=== PATIENT | male | born 1965 | race Asian ===

== ENCOUNTER 2020-02-04 13:09 | Emergency (ER) | payer OTHER, SELFPAY ==
--- NOTE | ~2020-02-04 | CT_ITS ---
EXAMINATION: CT abdomen pelvis w con DATE: 02/04/2020 14:19 INDICATION: Right lower quadrant abdominal pain TECHNIQUE: Computed tomography (CT) of the abdomen and pelvis was performed with 100 cc Omnipaque int ravenous contrast. Automated exposure control and iterative reconstruction technique were employed. E xam dose: 813.58 mGy-cm total exam DLP. COMPARISON: 02/08/2018 CT abdomen pelvis. FINDINGS: Normal heart size. Hepatic steatosis. There are occasional hepatic cysts, measuring 6.5 mm maximally. Normal splenic size. No pancreatic mass lesion, calcification or ductal dilatation. Normal morphology of the adrenal glands. 3 mm lower pole probable right renal cyst. There are 3.2 and 2 mm nonobstructing lower pole left renal calculi. No ureteral calculus or hydroureteronephrosis. The urinary bladder is unremarkable. Prostate enlargement and calcifications. The seminal vesicles appear normal. Normal caliber of the abdominal aorta. There is prominent calcification at the origin of the left yumiko al artery. No intraperitoneal or retroperitoneal or pelvic mass lesion or adenopathy or ascites. Small sliding hiatal hernia. Normal appendix. No bowel obstruction or intraperitoneal free air. No suspicious osteolytic or osteoblastic lesions. IMPRESSION: Normal appendix Hepatic steatosis Occasional hepatic cysts 3 mm right renal cyst Small nonobstructing left renal calculi Small sliding hiatal hernia Reviewed, dictated and finalized at [facility]. Reviewed, dictated and finalized at [facility].
[2020-02-04 13:14] VITALS: BP 147/89; PULSE 113; RESP 18; TEMP 36.7; O2SAT 100
--- NOTE | 2020-02-04 13:40 | ED.ABDPAIN ---
HPI - Abdominal Pain General Chief Complaint: Abdominal Pain Stated Complaint: abd pain Time Seen by Provider: 02/04/20 13:40 Source: patient Mode of arrival: ambulatory Limitations: no limitations History of Present Illness HPI narrative: A 54 y/o male presents to the ED with c/o pressure-like RLQ ABD pain that began a few days ago. Pt notes that he was seen at a hospital a few years ago for similar symptoms and had a normal CT scan. Pt last ate at 11:00 AM today. He denies a fever, chills, hematuria, blood in stool, N/V, a fall or recent trauma, and a PSHx of a cholecystectomy and an appendectomy. Onset (ago): day(s) (few) Location: RLQ Related Data Allergies Allergy/AdvReac Type Severity Reaction Status Date / Time Penicillins Allergy Unknown Unknown Verified 11/02/19 14:41 Review of Systems Review of Systems: All systems reviewed & are unremarkable except as noted in HPI and below Constitutional: Constitutional: Denies chills and Denies fever(s) Comments: Denies: a fall or recent trauma Gastrointestinal: Gastrointestinal: Reports abdominal pain (RLQ), Denies nausea and Denies vomiting Comments: Denies: blood in stool Genitourinary: Genitourinary: Denies hematuria PMFSH Past Medical History Medical History CPAP (continuous positive airway pressure) dependence Hyperlipidemia Hypertension Shoulder fracture, left Sleep apnea Surgical History Surgical History History of shoulder surgery History of tonsillectomy and adenoidectomy [place] teeth removed Family History Family History Grandparent Hypertension Mother Hypertension Social History Social History Smoking status: Never smoker Second hand tobacco smoke exposure: No Alcohol intake: current Drinks per week: 2 Substance use: never Substance use type: does not use Gender identity (if verbalized by the patient): Male Comments PCP: Dr. Aragon Exam Narrative: Exam Narrative: GENERAL: Well-appearing, well-nourished, and in no acute distress. HEAD: Normocephalic, atraumatic. EYES: PERRLA and EOMI. ENT: Nares clear, Mucous membranes moist. NECK: Supple. CHEST: Clear to auscultation. No respiratory distress. HEART: Regular rate and rhythm. No murmur heard. Normal peripheral pulses. ABDOMEN: Soft, Mild tenderness on the right side of the lower abdomen, non distended, normal active bowel sounds. EXTREMITIES: Normal range of motion. No edema. SKIN: Warm, dry, no rash. NEURO: No focal deficits. Alert and oriented x3. PSYCH: Normal mood and affect. Course Course Emergency Course: i patient comfortably sitting on the stretcher doing his work in no distress I discussed his lab, CT findings with the patient at this time I do not see any obvious reason for him to have right lower abdominal pain however patient states that he has been having multiple bowel movements a day. I recommended him to follow-up with his primary doctor and Dr. England Vital Signs Vital signs: Vital Signs Temperature 36.7 C 02/04/20 13:14 Pulse Rate 113 H 02/04/20 13:14 Respiratory Rate 18 02/04/20 13:14 Blood Pressure 147/89 H 02/04/20 13:14 Pulse Oximetry 100 02/04/20 13:14 Temperature 36.7 C 02/04/20 13:14 Pulse Rate 96 02/04/20 13:51 Respiratory Rate 16 02/04/20 13:51 Blood Pressure 131/92 H 02/04/20 13:51 Pulse Oximetry 93 02/04/20 13:51 MDM - Abdominal Pain Lab Data Result diagrams: 02/04/20 13:37 02/04/20 13:37 Labs: Lab Results 02/04/20 02/04/20 02/04/20 Range/Units 13:37 13:37 15:11 WBC 7.6 (4.5-10.0) K/mm3 RBC 5.20 (4.6-6.20) M/mm3 Hgb 15.8 (14.0-18.0) g/dL Hct 47.4 (42.0-52.0) % MCV 91.2 (80-100) fl MCH 30.4 (26-34) pg MCHC 33.3 (32-36) g/dl RDW 12.
[2020-02-04 13:46] LABS: Basophils Percent Auto 0.4 % (0.2-1.2); Eosinophils Absolute Auto 0.1 K/mm3 (0-0.3); Eosinophils Percent Auto 1.5 % (0-4.4); Hematocrit 47.4 % (42.0-52.0); Hemoglobin 15.8 g/dL (14.0-18.0); Immature Granulocyte Absolute 0.02 K/mm3 (0.00-0.031); Immature Granulocyte Percent A 0.3 % (0-0.5); Lymphocytes Absolute Auto 1.55 K/mm3 (0.9-3.2); Lymphocytes Percent Auto 20.5 % (18.3-44.2); Mean Corpuscular HGB Conc 33.3 g/dl (32-36); Mean Corpuscular Hemoglobin 30.4 pg (26-34); Mean Corpuscular Volume 91.2 fl (80-100); Mean Platelet Volume 11.5 fl (7.4-10.4); Monocytes Absolute Auto 0.4 K/mm3 (0.1-0.6); Monocytes Percent Auto 4.8 % (2.6-8.5); Neutrophils Absolute Auto 5.5 K/mm3 (1.3-6.7); Neutrophils Percent Auto 72.5 % (45.5-73.1); Platelet Count Result 272 k/mm3 (150-375); Red Cell Distribution Width 12.4 % (11.5-14.5); White Blood Count 7.6 K/mm3 (4.5-10.0)
[2020-02-04 13:51] VITALS: BP 131/92; PULSE 96; RESP 16; O2SAT 93
[2020-02-04 13:58] LABS: Alanine Aminotransferase 35 U/L (4-50); Albumin Level 4.8 g/dL (3.5-5.1); Alkaline Phosphatase 50 U/L (38-126); Aspartate Amino Transferase 32 U/L (17-59); Bilirubin,Total 1.2 mg/dL (0.2-1.3); Blood Urea Nitrogen 18 mg/dL (9-20); Carbon Dioxide 30 mmol/L (22-30); Chloride 103 mmol/L (98-107); Estimated CRCL calculation 97 ml/min; Estimated Glomerular Filt Rate > 60; Glucose 133 mg/dL (75-110); Lipase 44 U/L (23-300); Potassium 3.8 mmol/L (3.4-5.0); Sodium 138 mmol/L (137-145)
--- NOTE | 2020-02-04 13:58 | PC.NURSE ---
REMINDED PT THAT HE NEEDS TO GIVE URINE SAMPLE, STATES THAT HE WILL TRY SOON, REFUSING STRAIGHT CATH.
[2020-02-04 15:00] VITALS: BP 135/86; PULSE 85; RESP 16; O2SAT 96
[2020-02-04 15:26] LABS: Add Urine Microscopic? YES; Appearance Urine Clear (Clear); Bilirubin Urine Negative (Negative); Blood Urine Negative (Negative); Color Urine Yellow (Yellow); Glucose Urine UA Negative (Negative); Ketones Urine Negative (Negative); Leukocyte Esterase Ur Negative LEU/UL (Negative); Nitrate Urine Negative (Negative); Protein Urine Negative (Negative); RBC Urine 0-2 /hpf (0-2); Specific Grav Ur 1.027 (1.001-1.035); Squamous Epithelial Cell Urine Rare /hpf (Few); Urobilinogen Urine Negative mg/dL (<2.0); WBC Urine 0-3 /hpf
[2020-02-04 16:01] VITALS: BP 135/86; PULSE 78; RESP 16; O2SAT 100
== END 2020-02-04 16:02 | disposition home or self-care (01) ==
PROVIDERS: Emergency Provider Family Medicine; PCP Family Medicine
DX: R10.31 Right lower quadrant pain (principal); G47.30 Sleep apnea, unspecified; E78.5 Hyperlipidemia, unspecified; I10 Essential (primary) hypertension; K76.0 Fatty (change of) liver, not elsewhere classified; K76.89 Other specified diseases of liver; N28.1 Cyst of kidney, acquired; K44.9 Diaphragmatic hernia without obstruction or gangrene; N20.0 Calculus of kidney
CPT/HCPCS: 36415; 74177; 80053; 81001; 83690; 85025; 99284; Q9967

== ENCOUNTER 2020-05-19 13:51 | Outpatient (CLI) | payer OTHER, SELFPAY | END 2020-05-19 13:52 | disposition home or self-care (01) | LOC: ANHAUDIO 13:52 | PROVIDERS: PCP Family Medicine; Visit Provider Otolaryngology | DX: H93.11 Tinnitus, right ear (principal) | CPT/HCPCS: 92557; 92567 ==

== ENCOUNTER 2023-01-25 10:24 | Outpatient (CLI) | payer OTHER, SELFPAY ==
--- NOTE | 2023-01-25 10:35 | ECG_ITS ---
Measurements Intervals [place] Rate: 86 P: 46 OR: 147 QRS: -23 QRSD: 102 T: 27 QT: 357 QTc: 427 Interpretive Statements SINUS RHYTHM DELAYED PRECORDIAL R/S TRANSITION LEFT VENTRICULAR HYPERTROPHY MINIMAL Q WAVES- HIGH LATERAL LEADS BORDERLINE ECG NO PREVIOUS ECG AVAILABLE FOR COMPARISON Electronically Signed On 01-25-2023 13:13:45 [facility] [employer] by Boone Scott D.O.
== END 2023-01-25 10:25 | disposition home or self-care (01) ==
LOC: ANHSURGERY 10:31
PROVIDERS: PCP Family Medicine; Visit Provider Surgery
DX: I10 Essential (primary) hypertension (principal); Z01.818 Encounter for other preprocedural examination; R94.31 Abnormal electrocardiogram [ECG] [EKG]
CPT/HCPCS: 93005

== ENCOUNTER 2023-02-09 00:46 | Day surgery (SDC) | payer OTHER, SELFPAY ==
[2023-01-19 14:38] VITALS: BMI 28.7
--- NOTE | 2023-01-19 15:00 | SUR.PREOP ---
Report to the Outpatient Waiting Room, entrance under the green pavilion located off [facility], at time 1000 on date 01/31/23. Planned Procedure Time: 1200. Time changes happen often and if your time is changed the preop area will call you the afternoon before. - You and your visitor will be asked to self-screen and do not enter if you have any COVID symptoms. - Only one visitor is requested with a max of two and NO children visitors are allowed at this time. - The patient visitor may be requested to leave or wait in car when not with patient due to distancing restrictions. - A mask is optional within the hospital at this time. Patients may have clear liquids (water, carbonated beverages, clear teas, apple juice) until 3 hours prior to surgery with a maximum of 20 ounces. - No food from midnight until time of surgery - Infants may have breast milk until 4 hours before surgery, formula 6 hours prior to surgery. - Children will be allowed to drink immediately following surgery. If applicable, please bring a bottle or sippy cup to assist with drinking. Juice, water, soda, and popsicles are readily available. For infants on formula, please bring formula the day of surgery. Pacifiers are allowed. Take the following medications with a SIP of water the morning of surgery: N/A DO NOT STOP ANY OF YOUR OTHER PRESCRIPTION MEDICATIONS PRIOR TO SURGERY ?EXCEPT THE FOLLOWING Medications to discontinue per physician N/A Date to take last dose N/A Please no make-up, nail jamaican, hairspray, perfume, deodorant, or body powder the day of surgery. No jewelry (including any body piercings) or valuables the day of surgery, leave them at home. Please take a shower or bath the night before, or the morning of, surgery with an antibacterial soap. Wear comfortable, loose fitting clothing. Children are encouraged to wear pajamas. - Jewelry must be removed prior to entering the operating room. Rings and piercings that are not removed may be cut off. - The hospital will not accept responsibility for valuables. - Please leave all valuables, including medications, at home the day of surgery. If you are going home after surgery, a licensed stock driver must drive you home. - NO public transportation without another adult if you receive anesthesia. - We recommend that an adult stay with you for 24 hours following discharge. - We also recommend that you do not drive, make important decision, drink alcoholic beverages, or take any drugs that were not prescribed by your health care provider for at least 24 hours after your discharge time. For Pediatric surgeries, we recommend two adults accompany the child home. Follow any additional instructions given to you from your surgeon. If you or anyone in your household have experienced Covid symptoms in the past week, please notify your surgeon or the nurse liaison at the phone number below for possible testing. Telephone instructions given to ____NICCI RAYMOND and asked if any additional questions and then verbalized understanding. Patient advised to call surgeon office or pre surgery nurse liaison [phone] if any additional questions.
--- NOTE | 2023-01-25 09:14 | PC.NURSE ---
Pt states no changes in medications or health history since initial interview. Pre-op instructions reviewed with pt. Pt denies further questions at this time.
--- NOTE | 2023-01-25 09:15 | PC.NURSE ---
Report to the Outpatient Waiting Room, entrance under the green pavilion located off [facility], at time 10:00 on date 02/09/23. Planned Procedure Time: 12:00. Time changes happen often and if your time is changed the preop area will call you the afternoon before. - You and your visitor will be asked to self-screen and do not enter if you have any COVID symptoms. - Only one visitor is requested with a max of two and NO children visitors are allowed at this time. - The patient visitor may be requested to leave or wait in car when not with patient due to distancing restrictions. - A mask is optional within the hospital at this time. Patients may have clear liquids (water, carbonated beverages, clear teas, apple juice) until 3 hours prior to surgery (9:00) with a maximum of 20 ounces. - No food from midnight until time of surgery Take the following medications with a SIP of water the morning of surgery: NONE DO NOT STOP ANY OF YOUR OTHER PRESCRIPTION MEDICATIONS PRIOR TO SURGERY EXCEPT THE FOLLOWING Medications to discontinue per physician: N/A Date to take last dose: N/A Please no make-up, nail thai, hairspray, perfume, deodorant, or body powder the day of surgery. No jewelry (including any body piercings) or valuables the day of surgery, leave them at home. Please take a shower or bath the night before, or the morning of, surgery with an antibacterial soap. Wear comfortable, loose fitting clothing. - Jewelry must be removed prior to entering the operating room. Rings and piercings that are not removed may be cut off. - The hospital will not accept responsibility for valuables. - Please leave all valuables, including medications, at home the day of surgery. If you are going home after surgery, a licensed gas truck driver must drive you home. - NO public transportation without another adult if you receive anesthesia. - We recommend that an adult stay with you for 24 hours following discharge. - We also recommend that you do not drive, make important decision, drink alcoholic beverages, or take any drugs that were not prescribed by your health care provider for at least 24 hours after your discharge time. Follow any additional instructions given to you from your surgeon. If you or anyone in your household have experienced Covid symptoms in the past week, please notify your surgeon or the nurse liaison at the phone number below for possible testing. Telephone instructions given to PT - NICCI RAYMOND and asked if any additional questions and then verbalized understanding. Patient advised to call surgeon office or pre surgery nurse liaison [phone] if any additional questions.
[2023-02-09 10:32] VITALS: BP 131/79; PULSE 77; RESP 16; TEMP 36.6; O2SAT 97
--- NOTE | 2023-02-09 11:01 | SUR.PREOP ---
1040 pt states anal mass smaller,called dr teran. [id number] dr teran here and examined pt,procedure cancelled. mass no longer needs excision.
== END 2023-02-09 10:54 | disposition home or self-care (01) ==
PROVIDERS: PCP Family Medicine; Visit Provider Surgery
DX: K62.9 Disease of anus and rectum, unspecified (principal); Z53.8 Procedure and treatment not carried out for other reasons
CPT/HCPCS: 99212; G0463

== ENCOUNTER 2023-07-08 11:28 | Day surgery (SDC) | payer OTHER, SELFPAY ==
[2023-07-08] VITALS (10 sets, daily range): BP systolic 95–157; BP diastolic 60–98; PULSE 89–97; RESP 12–18; TEMP 36.6–37.2; O2SAT 95–100
--- NOTE | ~2023-07-08 | CT_ITS ---
EXAMINATION: CT abdomen pelvis w con INDICATION: Left flank pain TECHNIQUE: Computed tomographic images of the abdomen and pelvis were obtained after the administrati on of 100 cc of Omnipaque 350 intravenous contrast. The dose-length product (DLP) was 737.10 mGy-cm. Automated exposure control and iterative reconstruction technique were employed. COMPARISON: 02/04/2020 FINDINGS: The lung bases are clear. The heart size is normal. There is a small sliding hiatal hernia. There is a 6 mm cyst of the right hepatic lobe. The spleen, pancreas, gallbladder, and adrenal gland s are normal. The right kidney is unremarkable. There is a 10 mm stone at the left ureterovesicular j unction which causes moderate left hydroureteronephrosis. There is decreased perfusion of the left ki dney compared to the right with a moderate volume of left perinephric fluid. No pathologically enlarg ed abdominal or pelvic lymph nodes are identified. No free intraperitoneal gas or evidence of bowel o bstruction. The appendix is normal. There is a right inguinal hernia containing a short segment of no nobstructed small bowel. There is moderate lumbar spondylosis. IMPRESSION: 1. 10 mm stone at the left ureterovesicular junction causing moderate left hydroureteronephrosis. Dec reased perfusion of the left kidney and surrounding left perinephric fluid could reflect superimposed pyelonephritis. Reviewed, dictated and finalized at location B. IMPRESSION: 1. 10 mm stone at the left ureterovesicular junction causing moderate left hydr oureteronephrosis. Decreased perfusion of the left kidney and surrounding left perinephric fluid could reflect superimposed pyelonephritis.
--- NOTE | ~2023-07-08 | XR_ITS ---
EXAMINATION: XR retrograde pyelo w/stent LT DATE: 07/08/2023 17:45 CDT INDICATION: LT SIDE RETRO W STENT . TECHNIQUE: 5 fluoroscopic images of the abdomen and pelvis were obtained during left retrograde pyelo graphy with stent placement performed by the surgeon. I was not present in the operating room. Fluoro scopy exposure time was 56 seconds. Air Kerma 26.29 mGy. DAP 1.06 mGym2. COMPARISON: CT abdomen pelvis, same date FINDINGS: Mild-moderate dilation of the left collecting system. Following stent deployment the proximal coil is present in the upper pelvis and the distal coil is positioned over the bladder. IMPRESSION: Fluoroscopic documentation of left retrograde bilateral stent placement. Please refer to the operativ e note for complete procedural details . Reviewed, dictated and finalized at location K. IMPRESSION: Fluoroscopic documentation of left retrograde bilateral stent placement. Please refer to the operative note for complete procedural details .
[2023-07-08 12:10] LABS: Bacteria Urine None Seen /hpf; Non Pathogenic Casts 0-2; RBC Urine >100 /hpf (0-2); Squamous Epithelial Cell Urine None seen /hpf (Few)
[2023-07-08 12:13] LABS: Appearance Urine Turbid (Clear); Bilirubin Urine 1+ (Negative); Blood Urine 3+ (Negative); Glucose Urine UA Negative (Negative); Ketones Urine Negative (Negative); Leukocyte Esterase Ur 2+ LEU/UL (Negative); Nitrate Urine Negative (Negative); Protein Urine 2+ mg/dL (Negative); Specific Grav Ur 1.021 (1.001-1.035); Urobilinogen Urine 0.2 mg/dL (<2.0)
[2023-07-08 12:16] LABS: Add Urine Microscopic? YES; Color Urine Brown (Yellow)
--- NOTE | 2023-07-08 12:46 | ED.GENADULT ---
HPI - General Adult General Chief complaint: Urogenital-Male Stated complaint: flank pain Time Seen by Provider: 07/08/23 11:57 Source: patient Mode of arrival: ambulatory Limitations: no limitations History of Present Illness HPI narrative: This is a 58-year-old male who presents to the ED with chief complaint of left-sided abdominal pain and hematuria. Reports hematuria and dysuria for the past couple of weeks and being worked up/treated for UTI with his primary. He states the left sided abdominal pain began over the last day or so. Reports a sharp pain that does not radiate. Denies nausea, vomiting, fevers, chills. Denies any problems with bowel movements or rectal pain. States he was originally treated for UTI with Cipro by his primary and was then switched to Macrobid a week later as it was not helping. Per chart review patient's cultures from a couple of weeks ago grew out mixed chelle but no indication for isolated bacterial infection. Related Data Allergies Allergy/AdvReac Type Severity Reaction Status Date / Time Penicillins Allergy Unknown Unknown Verified 07/08/23 16:32 Review of Systems Review of Systems: All systems as dictated in [facility] Past Medical History Medical History Bronchitis CPAP (continuous positive airway pressure) dependence Hyperlipidemia Hypertension JERRY (obstructive sleep apnea) Shoulder fracture, left Sleep apnea Vitamin D deficiency Surgical History Surgical History History of shoulder surgery (~2015) History of tonsillectomy and adenoidectomy (~1965) [place] teeth removed (~1980) Family History Family History Grandparent Hypertension Malignant neoplasm of prostate Mother Hypertension Social History Social History Social History: Caffeine-tea Smoking status: Never smoker Second hand tobacco smoke exposure: No Alcohol intake: current Drinks per week: 2 Alcohol use details: beer & wine socially Substance use: never Substance use type: does not use Lack of Transportation: No Lack of Food: Never True Current Housing: I Have Housing Concerned About Future Housing: No Difficulty Paying Gas/Electric Bills: No Difficulty Paying for Meds: No Currently Unemployed: No Education: Master's Degree or Higher Difficulty w/ Childcare or Family Care: No Living arrangements: with family 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 Appears in pain. Pleasant, conversational and cooperative. HEAD: Normocephalic, atraumatic. EYES: PERRLA and EOMI. ENT: Nares clear, no rhinorrhea or epistaxis. Mucous membranes moist. Oropharynx without tonsillar hypertrophy exudate or other lesions. NECK: Supple. No adenopathy or masses. CHEST: No respiratory distress. Clear to auscultation. No wheezes rales or rhonchi HEART: Regular rate and rhythm. No murmur heard. Normal peripheral pulses. ABDOMEN: Minimal flank tenderness on the left and negative on the right. Soft, nontender, nondistended, normal active bowel sounds. MSK: Normal range of motion. No edema. SKIN: Warm, dry, no rash. NEURO: Alert and oriented x3. No focal deficits. PSYCH: Normal mood and affect. Course Vital Signs Vital signs: Vital Signs Temperature 97.8 F 07/08/23 11:49 Pulse Rate 90 07/08/23 11:49 Respiratory Rate 16 07/08/23 11:49 Blood Pressure 142/84 H 07/08/23 11:49 Pulse Oximetry 96 07/08/23 11:49 Oxygen Delivery Room Air 07/08/23 11:49 Temperature 98.9 F 07/08/23 16:30 Pulse Rate 92 07/08/23 16:30 Respiratory Rate 14 07/08/23 16:30
[2023-07-08] MEDS: ONDANSETRON INJ 4 MG/2 ML VIAL IV PUSH (13:13)
[2023-07-08] MEDS: MORPHINE SULFATE (*CRX) 4 MG/ML INJ IV PUSH ×2 (13:14→14:48)
[2023-07-08 13:58] LABS: Basophils Percent Auto 0.2 % (0.2-1.2); Eosinophils Percent Auto 0.1 % (0-4.4); Hematocrit 45.6 % (42.0-52.0); Immature Granulocyte Absolute 0.06 K/mm3 (0.00-0.031); Immature Granulocyte Percent A 0.3 % (0-0.5); Lymphocytes Percent Auto 4.5 % (18.3-44.2); Mean Corpuscular HGB Conc 32.9 g/dl (32-36); Mean Corpuscular Volume 94.2 fl (80-100); Mean Platelet Volume 11.4 fl (7.4-10.4); Monocytes Absolute Auto 0.9 K/mm3 (0.1-0.6); Monocytes Percent Auto 5.3 % (2.6-8.5); Neutrophils Absolute Auto 15.9 K/mm3 (1.3-6.7); Neutrophils Percent Auto 89.6 % (45.5-73.1); Platelet Count Result 225 k/mm3 (150-375); Red Blood Count 4.84 M/mm3 (4.6-6.20); Red Cell Distribution Width 12.3 % (11.5-14.5); White Blood Count 17.8 K/mm3 (4.5-10.0)
[2023-07-08 14:05] LABS: Estimated CRCL calculation 71 ml/min; Estimated Glomerular Filt Rate > 60
[2023-07-08 14:11] LABS: Alanine Aminotransferase 30 U/L (6-50); Albumin Level 4.8 g/dL (3.5-5.1); Alkaline Phosphatase 61 U/L (38-126); Anion Gap 11 mmol/L (8-16); Aspartate Amino Transferase 33 U/L (17-59); Bilirubin,Total 1.1 mg/dL (0.2-1.3); Blood Urea Nitrogen 20 mg/dL (9-20); Calcium 10.1 mg/dL (8.4-10.2); Carbon Dioxide 25 mmol/L (22-30); Chloride 101 mmol/L (98-107); Estimated CRCL calculation 77 ml/min; Estimated Glomerular Filt Rate > 60; Glucose 109 mg/dL (65-110); Potassium 4.1 mmol/L (3.4-5.0); Sodium 137 mmol/L (137-145)
--- NOTE | 2023-07-08 15:53 | WPDURCON ---
Assessment and Plan Assessment and plan (1) Ureteral stone: Code(s): N20.1 - Calculus of ureter Status: Acute Assessment and Plan: Plan to go to the OR with Dr. Travis: Cystoscopy, left ureteroscopy with stone extraction, left stent placement, left retrograde pyelogram, holmium laser. Keep NPO. Obtain Consent. Urine Culture pending, Ceftriaxone given, would recommend culture appropriate antibiotics x 14 days if patient is admitted and sensitivity results before discharge. If discharged home prior to culture sensitivity, I recommend Bactrim DS BID x 14 days and stopping Nitrofurantoin. Urology Consult Note HPI Date Seen: 07/08/23 Time Seen: 15:53 Requesting Physician: Norm Travis MD Primary Care Provider: Esvin Zavala MD Consult Narrative Reason for consult: Left UVJ Stone Narrative: Jed Fu is a 58 year old male who presents to the ED with chief complaint of left-sided abdominal pain that radiates to the LLQ and hematuria that worsened today. Reports hematuria, left flank pain, LLQ pain and dysuria for the past couple of weeks and being worked up/treated for UTI with his primary.?He has had two courses of antibiotics for a UTI, Cipro then Nitrofurantoin which he is currently taking.?He has no previous history of kidney stones. His CT scan shows 10 mm stone at the left ureterovesicular junction causing moderate left hydroureteronephrosis. Decreased perfusion of the left kidney and surrounding left perinephric fluid could reflect superimposed pyelonephritis. UA is potentially positive for a UTI, urine culture is pending. WBC is 17,000 and creatinine is 1.20 but he is currently afebrile. Denies nausea, vomiting, fevers, chills Review of Systems Cardiovascular: Cardiovascular: Denies chest pain Respiratory: Respiratory: Reports no additional respiratory complaints Gastrointestinal: Gastrointestinal: Reports abdominal pain, Denies nausea and Denies vomiting Genitourinary: Genitourinary: Reports hematuria, Reports dysuria, Reports flank pain, Reports urinary frequency, Reports urinary hesitancy and Reports urinary urgency PMF Past Medical History Medical History Bronchitis CPAP (continuous positive airway pressure) dependence Hyperlipidemia Hypertension JERRY (obstructive sleep apnea) Shoulder fracture, left Sleep apnea Vitamin D deficiency Surgical History Surgical History History of shoulder surgery (~2015) History of tonsillectomy and adenoidectomy (~1965) [place] teeth removed (~1980) Family History Family History Grandparent Hypertension Malignant neoplasm of prostate Mother Hypertension Social History Social History Social History: Caffeine-tea Smoking status: Never smoker Second hand tobacco smoke exposure: No Alcohol intake: current Drinks per week: 2 Alcohol use details: beer & wine socially Substance use: never Substance use type: does not use Lack of Transportation: No Lack of Food: Never True Current Housing: I Have Housing Concerned About Future Housing: No Difficulty Paying Gas/Electric Bills: No Difficulty Paying for Meds: No Currently Unemployed: No Education: Master's Degree or Higher Difficulty w/ Childcare or Family Care: No Living arrangements: with family 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
[2023-07-08] MEDS: LACTATED RINGERS 1,000 ML 30 ML IV CONT (16:45)
--- NOTE | 2023-07-08 16:45 | WPDHPUPDATE1 ---
History and Physical Update Update Date/Time: 07/08/23 16:45 History and Physical has been reviewed, including an updated exam of the patient. There are NO changes in the patient's condition. Risks, benefits, and alternatives have been discussed and questions answered. Patient agrees to proceed with procedure.
--- NOTE | 2023-07-08 17:16 | WPDANESEPPF ---
Anes - Initial Pre Proc Eval Procedure: Operation Date: 07/08/23 16:45 Proposed Procedures p Cystoscopy, Retropyelogram, Possible Left Stone Extraction, Left Stent Placement, Possible Holmium Laser(Left) - Norm Travis MD Date/Time: 07/08/23 17:16 Surgeon: Norm Travis MD Pre Op Diagnosis: flank pain Patient Data Age: 58 Gender: M Height: 1.91 m Weight: 104 kg Last Vital Signs Temp 37.2 C 07/08/23 16:30 Pulse 92 07/08/23 16:30 Resp 14 07/08/23 16:30 BP 150/98 H 07/08/23 16:30 Pulse Ox 100 07/08/23 16:30 O2 Del Method Room Air 07/08/23 16:30 Allergies Allergy/AdvReac Type Severity Reaction Status Date / Time Penicillins Allergy Unknown Unknown Verified 07/08/23 16:32 Home Medications Medication Instructions Recorded Confirmed Type atorvastatin 20 mg tablet 20 mg PO QHS #90 tabs 11/01/22 07/08/23 Rx lisinopril 20 mg tablet 20 mg PO DAILY #90 tabs 02/02/23 07/08/23 Rx nitrofurantoin 100 mg PO Q12H 7 days #14 caps 07/04/23 07/08/23 Rx monohydrate/macrocrystals 100 mg capsule (Macrobid) Laboratory Tests 07/08/23 07/08/23 07/08/23 11:56 13:46 14:04 WBC 17.8 H K/mm3 (4.5-10.0) RBC 4.84 M/mm3 (4.6-6.20) Hgb 15.0 g/dL (14.0-18.0) Hct 45.6 % (42.0-52.0) MCV 94.2 fl (80-100) MCH 31.0 pg (26-34) MCHC 32.9 g/dl (32-36) RDW 12.3 % (11.5-14.5) Plt Count 225 k/mm3 (150-375) MPV 11.4 H fl (7.4-10.4) Immature Gran % (Auto) 0.3 % (0-0.5) Neut % (Auto) 89.6 H % (45.5-73.1) Lymph % (Auto) 4.5 L % (18.3-44.2) [place] % (Auto) 5.3 % (2.6-8.5) Eos % (Auto) 0.1 % (0-4.4) Baso % (Auto) 0.2 % (0.2-1.2) Lymph # (Auto) 0.80 L K/mm3 (0.9-3.2) [place] # (Auto) 0.9 H K/mm3 (0.1-0.6) Eos # (Auto) 0.0 K/mm3 (0-0.3) Baso # (Auto) 0.0 K/mm3 (0.0-0.1) Abs Immat Gran (auto) 0.06 H K/mm3 (0.00-0.031) Absolute Neuts (auto) 15.9 H K/mm3 (1.3-6.7) Absolute Nucleated RBC 0.0 K/mm3 (0.0-0.012) Nucleated RBC % 0.0 % (0.0-0.2) Sodium 137 mmol/L (137-145) Potassium 4.1 mmol/L (3.4-5.0) Chloride 101 mmol/L (98-107) Carbon Dioxide 25 mmol/L (22-30) Anion Gap 11 mmol/L (8-16) BUN 20 mg/dL (9-20) Creatinine 1.10 mg/dL 1.20 mg/dL (0.7-1.3) (0.8-1.5) Estim Creat Clear Calc 77 ml/min 71 ml/min Estimated GFR > 60 > 60 (59 - ) (59 - ) Glucose 109 mg/dL (65-110) Calcium 10.1 mg/dL (8.4-10.2) Total Bilirubin 1.1 mg/dL (0.2-1.3) AST 33 U/L (17-59) ALT 30 U/L (6-50) Alkaline Phosphatase 61 U/L (38-126) Total Protein 8.0 g/dL (6.3-8.2) Albumin 4.8 g/dL (3.5-5.1) Urine Color Brown H (Yellow) Urine Appearance Turbid H (Clear) Urine pH 5.0 (5.0-9.0) Ur Specific [place] 1.021 (1.001-1.035) Urine Protein 2+ H mg/dL (Negative) Urine Glucose (UA) Negative mg/dL (Negative) Urine Ketones Negative mg/dL (Negative) Ur Blood (Man) 3+ H (Negative) Urine Nitrate Negative (Negative) Urine Bilirubin 1+ H (Negative) Urine Urobilinogen 0.2 mg/dL (<2.0) Leukocyte Esterase Rfl 2+ H AVA/UL (Negative) Urine RBC >100 H /hpf (0-2) Urine WBC 11-20 H /hpf Ur Squamous Epith Cells None seen /hpf (Few) Urine Bacteria None seen /hpf Urine Casts 0-2 Patient hx anesthesia problems: none Family hx anesthesia problems: none Results Review: All pre-operative results and documents have been reviewed as part of the pre-operative evaluation. [facility] Past Medical
--- NOTE | 2023-07-08 18:20 | P.OP_ITS ---
Procedure Note - Detailed Date of Procedure 07/08/23 Pre-op Diagnosis Left distal ureteral stone, 10mm Post-op Diagnosis Same Procedure Performed Cystoscopy, left ureteroscopy, laser lithotripsy, stone extraction, retrograde pyelogram, stent insertion Surgeon Norm Travis MD Anesthesia General Findings Impacted left distal ureteral stone Description of Procedure Informed consent was obtained. Patient taken the operating. He was given preoperative IV antibiotics emergency department. He was induced anesthesia. He was prepped and draped in normal sterile fashion. We inserted a 20 F cystoscope through the urethra into the bladder. We noted the patient had mild bilobar prostatic hyperplasia. Inspection of the bladder revealed edema of the left ureteral vesicle junction, no other mucosal abnormalities. We had difficulty passing a Sensor wire beyond the level of the stone however able to use a angled Glidewire beyond the level of the stone into the kidney. We then dilated with an 810 coaxial dilator in order to dilate the distal ureter. We l eft the Sensor wire in place as a safety. We then advanced a semi rigid ureteral scope in the distal ureter. We encountered a large stone that was to big to be removed in 1 piece, therefore we used the laser fiber in order to fragment the stone into multiple smaller fragments. Once the stone was fragmented, we removed pieces individually with a Zero tip Nitinol basket. We then inspected the distal 2/3 of the ureter there were no residual stones seen. Retrograde pyelogram revealed no extravasation. There was severe hydroureteronephrosis present. We elected to place a 6 F variable length stent. A curl was noted in the upper pole and in the bladder. The bladder was emptied lidocaine was instilled patient was awakened taken recovery in stable condition Pathology Yes Condition Stable Disposition PACU
== END 2023-07-08 20:31 | disposition home or self-care (01) ==
LOC: ANHED 15:05 → ANHSURGERY 15:26
PROVIDERS: General Practice; Emergency Provider Physician Assistant; PCP Family Medicine; Visit Provider Urology
PROC: (CPT 52352; principal; 2023-07-08 16:45)
DX: N13.2 Hydronephrosis with renal and ureteral calculous obstruction (principal); I10 Essential (primary) hypertension; E78.5 Hyperlipidemia, unspecified; G47.33 Obstructive sleep apnea (adult) (pediatric); E55.9 Vitamin D deficiency, unspecified
CPT/HCPCS: 52356; 36415; 74177; 74420; 80053; 81001; 82365; 85025; 87086; 88300; 96361; 96365; 96375; 96376; 99285; C1769; C2617; J0696; J1100; J2250; J2270; J2405; J2704; J3010; J7120; Q9966; Q9967

== ENCOUNTER 2023-08-18 10:28 | Outpatient (CLI) | payer OTHER, SELFPAY ==
--- NOTE | ~2023-08-18 | XR_ITS ---
XR abdomen/kub 1V 08/18/2023 10:45 INDICATION: Flank pain TECHNIQUE: KUB COMPARISON: CT dated 07/08/2023 FINDINGS: Bowel gas pattern is normal. There is no evidence of free air, mass, organomegaly, ascites or obstruction. No abnormal calculi are seen. Interval passage of stone previously seen at the left UVJ. The bones appear intact. IMPRESSION: 1: No acute abdominal abnormality identified. Reviewed, dictated and finalized at location L.
== END 2023-08-18 10:29 | disposition home or self-care (01) ==
LOC: ANHIMG 10:34
PROVIDERS: PCP Family Medicine; Visit Provider Urology
DX: N20.1 Calculus of ureter (principal)
CPT/HCPCS: 74018

== ENCOUNTER 2024-01-23 01:04 | Day surgery (SDC) | payer OTHER, SELFPAY ==
[2024-01-06 13:09] VITALS: BMI 28.8
--- NOTE | 2024-01-20 12:20 | SUR.PREOP ---
Patient called regarding upcoming procedure. Reviewed preop instructions, appointment times, and procedure prep.
--- NOTE | 2024-01-20 14:32 | PM.HPGS ---
History of Present Illness History of Present Illness Consent: Risks, benefits, and alternatives have been discussed and questions answered. Patient agrees to proceed with procedure. Chief complaint: History of colon polyps Narrative: Jde Fu is a 58 year old male here for colon cancer screening. About 6 years ago he had a colonoscopy and a small polyp like elevation was removed. Review of Systems Review of Systems: All systems reviewed & are unremarkable except as noted in HPI and below PMFSH Past Medical History Medical History Bronchitis CPAP (continuous positive airway pressure) dependence Hyperlipidemia Hypertension Kidney stone on left side JERRY (obstructive sleep apnea) Shoulder fracture, left Sleep apnea Vitamin D deficiency Surgical History Surgical History History of lithotripsy (~06/2023) Cystoscopy, left ureteroscopy, laser lithotripsy, stone extraction, retrograde pyelogram, stent insertion History of shoulder surgery (~2015) History of tonsillectomy and adenoidectomy (~1965) [place] teeth removed (~1980) Family History Family History Grandparent Hypertension Malignant neoplasm of prostate Mother Hypertension Social History Social History Social History: Caffeine-tea Smoking status: Never smoker Second hand tobacco smoke exposure: No Alcohol intake: current Drinks per week: 2 Alcohol use details: beer Substance use: never Substance use type: does not use Lack of Transportation: No Lack of Food: Never True Current Housing: I Have Housing Concerned About Future Housing: No Difficulty Paying Gas/Electric Bills: No Difficulty Paying for Meds: No Currently Unemployed: No Education: Master's Degree or Higher Difficulty w/ Childcare or Family Care: No Living arrangements: with family 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 Gender identity (if verbalized by the patient): Male Spiritual care concerns: No Agree to blood products: Yes Meds Home Medications and Allergies Home Medications Medication Instructions Recorded Confirmed Type atorvastatin 20 mg tablet 20 mg PO QHS #90 tabs 11/01/22 01/23/24 Rx lisinopril 20 mg tablet 20 mg PO DAILY #90 tabs 10/31/23 01/23/24 Rx cholecalciferol (vitamin D3) 75 75 mcg PO DAILY 11/02/23 01/23/24 History mcg (3,000 unit) tablet Allergies Allergy/AdvReac Type Severity Reaction Status Date / Time Penicillins Allergy Unknown Unknown Verified 01/23/24 08:02 Exam Resp: Auscultation: clear to auscultation bilaterally Cardio: Rate: regular rate Rhythm: regular rhythm GI: GI Palp: Yes Soft to palpation and No Tenderness to palpation present (GI) Assessment and Plan Assessment and plan (1) Colon cancer screening: Code(s): Z12.11 - Encounter for screening for malignant neoplasm of colon Status: Acute Assessment and Plan: Colonoscopy with possible biopsy or polypectomy or cautery or injection of substances.
[2024-01-23 08:03] VITALS: BP 126/71; PULSE 78; RESP 16; TEMP 36.6; O2SAT 97
[2024-01-23] MEDS: LACTATED RINGERS 1,000 ML 150 ML IV CONT (08:16)
--- NOTE | 2024-01-23 08:44 | WPDANESEPPF ---
Anes - Initial Pre Proc Eval Procedure: Operation Date: 01/23/24 09:00 Proposed Procedures p Colonoscopy - Salvador Schroeder MD Date/Time: 01/23/24 08:44 Surgeon: Salvador Schroeder MD Pre Op Diagnosis: History of colon polyps Patient Data Age: 58 Gender: M Height: 1.91 m Weight: 106.5 kg Last Vital Signs Temp 97.9 F 01/23/24 08:03 Pulse 78 01/23/24 08:03 Resp 16 01/23/24 08:03 BP 126/71 01/23/24 08:03 Pulse Ox 97 01/23/24 08:03 O2 Del Method Room Air 01/23/24 08:03 Allergies Allergy/AdvReac Type Severity Reaction Status Date / Time Penicillins Allergy Unknown Unknown Verified 01/23/24 08:02 Home Medications Medication Instructions Recorded Confirmed Type atorvastatin 20 mg tablet 20 mg PO QHS #90 tabs 11/01/22 01/23/24 Rx lisinopril 20 mg tablet 20 mg PO DAILY #90 tabs 10/31/23 01/23/24 Rx cholecalciferol (vitamin D3) 75 75 mcg PO DAILY 11/02/23 01/23/24 History mcg (3,000 unit) tablet Patient hx anesthesia problems: none Family hx anesthesia problems: none Results Review: All pre-operative results and documents have been reviewed as part of the pre-operative evaluation. [facility], [facility] Past Medical History Medical History Bronchitis CPAP (continuous positive airway pressure) dependence Hyperlipidemia Hypertension Kidney stone on left side JERRY (obstructive sleep apnea) Shoulder fracture, left Sleep apnea Vitamin D deficiency Surgical History Surgical History History of lithotripsy (~06/2023) Cystoscopy, left ureteroscopy, laser lithotripsy, stone extraction, retrograde pyelogram, stent insertion History of shoulder surgery (~2015) History of tonsillectomy and adenoidectomy (~1965) [place] teeth removed (~1980) Family History Family History Grandparent Hypertension Malignant neoplasm of prostate Mother Hypertension Social History Social History Social History: Caffeine-tea Smoking status: Never smoker Second hand tobacco smoke exposure: No Alcohol intake: current Drinks per week: 2 Alcohol use details: beer Substance use: never Substance use type: does not use Lack of Transportation: No Lack of Food: Never True Current Housing: I Have Housing Concerned About Future Housing: No Difficulty Paying Gas/Electric Bills: No Difficulty Paying for Meds: No Currently Unemployed: No Education: Master's Degree or Higher Difficulty w/ Childcare or Family Care: No Living arrangements: with family 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 Gender identity (if verbalized by the patient): Male Spiritual care concerns: No Agree to blood products: Yes Anes - Eval Final PreProcedure Day of Procedure 01/23/24 08:44 Patient weight: obese Heart: regular rate and rhythm Lungs: clear to auscultation Airway: Mallampati scale class II Neurological: alert and oriented Last oral intake: >/= 8 hours ASA classification: III Emergent: no Anesthetic plan: proceed Anesthesia type and monitoring: general GIVS and standard monitoring Results Review: All pre-operative results and documents have been reviewed as part of the pre-operative evaluation. Informed Consent: The patient's anesthetic plan and its attendant risks and benefits were discussed with the patient/family/POA. Questions were solicited and answers provided to the satisfaction of the patient/family/POA.
[2024-01-23 09:12] VITALS: BP 112/67; PULSE 76; RESP 20; O2SAT 97
[2024-01-23 09:22] VITALS: BP 104/64; PULSE 70; RESP 20; O2SAT 98
[2024-01-23 09:32] VITALS: BP 124/77; PULSE 66; RESP 20; O2SAT 100
== END 2024-01-23 09:43 | disposition home or self-care (01) ==
PROVIDERS: PCP Family Medicine; Visit Provider Internal Medicine Gastroenterology
PROC: 0DJD8ZZ Inspection of Lower Intestinal Tract, Via Natural or Artificial Opening Endoscopic (ICD-10-PCS; CPT 45378; principal; 2024-01-23 09:00)
DX: Z12.11 Encounter for screening for malignant neoplasm of colon (principal); K64.8 Other hemorrhoids; I10 Essential (primary) hypertension; E78.5 Hyperlipidemia, unspecified; E55.9 Vitamin D deficiency, unspecified; G47.33 Obstructive sleep apnea (adult) (pediatric); E66.9 Obesity, unspecified; Z68.29 Body mass index [BMI] 29.0-29.9, adult; Z99.89 Dependence on other enabling machines and devices; Z98.890 Other specified postprocedural states; Z86.010 Personal history of colon polyps; Z80.42 Family history of malignant neoplasm of prostate
CPT/HCPCS: 45378; J2704; J7120

== ENCOUNTER 2024-07-25 15:48 | Outpatient (CLI) | payer OTHER, SELFPAY ==
--- NOTE | ~2024-07-25 | XR_ITS ---
EXAMINATION: XR abdomen/kub 1V DATE: 07/25/2024 16:07 INDICATION: Left ureteral stone. TECHNIQUE: A supine view of the abdomen on 2 radiographs was obtained. COMPARISON: Abdomen radiographs 08/18/2023, CT abdomen and pelvis 07/08/2023 FINDINGS: There are no dilated loops of bowel. There is a large volume of stool in the colon. There a re phleboliths in the pelvis. IMPRESSION: 1. No visible urolithiasis. Reviewed, dictated and finalized at location A. IMPRESSION: 1. No visible urolithiasis.
== END 2024-07-25 15:49 | disposition home or self-care (01) ==
PROVIDERS: PCP Family Medicine; Visit Provider Urology
DX: N20.1 Calculus of ureter (principal)
CPT/HCPCS: 74018

== ENCOUNTER 2025-09-20 12:30 | Outpatient (CLI) | payer OTHER, SELFPAY ==
--- NOTE | ~2025-09-20 | XR_ITS ---
EXAM/PROCEDURE: XR abdomen/kub 1V HISTORY: Left ureteral stone follow-up COMPARISON: The 2023 TECHNIQUE: AP views of the abdomen and pelvis FINDINGS: There are calcifications in the pelvis thought to represent phleboliths and prostatic calcifications. These are unchanged. No additional calcifications overlie the renal beds or expected courses of the ureters. A large amount of fecal material overlies the right renal bed, making evaluation s uboptimal. IMPRESSION: No acute findings. No definite new calcifications. Reviewed, dictated and finalized at location A.
--- OUTSIDE RECORDS SUMMARY | 2025-09-20 12:34 | XMS_ITS | Data Portability ---
Author Organization [facility] Address [address] [facility] [place] [address] Care Team Providers Care Outsole Skiver Name Role Phone MARIO SKY Primary Care Provider Unavailab le Assessment Encounter Date Assessment Date Assessment LastModified by Organization Details LastModified Time 10/11/2024 10/11/2024 Cologuard negative July 03, 2024 Diabetic eye exam is due Dental visit is due Labs are up-to-date reviewed today Not available 10/21/2024 19:16:34 05/28/2025 05/28/2025 Cologuard negative July 03, 2024 Diabetic eye exam is due Dental visit is due Labs are up-to-date reviewed today Not available 05/28/2025 15:11:46 Plan of Treatment Reminders Order Date Submit Date Provider Last Modified By Organization Details Last Modified Time Details Appointments ANY 15 2025 10:00A M MARY Au Not available Not available Not available Lab HbA1c (hemoglob in A1c), blood 2024 025 [email or web address] [facility], [address], [place], [address], 05/28/2025 15:19:18 PSA, total, serum or plasma 2024 025 [email or web address] [facility], [address], [place], [address], 05/28/2025 15:19:18 CBC w/ auto diff 2024 025 [email or web address] [facility], [address], [place], [address], 05/28/2025 15:19:18 CMP, serum or plasma 2024 025 [email or web address] [facility], [address], [place], [address], 05/28/2025 15:19:18 TSH + free T4, serum 2024 025 [email or web address] [facility], [address], [place], [address], 05/28/2025 15:19:18 lipid panel, serum 2024 025 [email or web address] [facility], [address], [place], [address], 05/28/2025 15:19:19 vitamin B12, serum 2024 025 [email or web address] [facility], [address], [place], [address], 05/28/2025 15:19:18 HbA1c (hemoglob in A1c), blood 2023 025 GILBERTO [facility], [address], [place], [address], 05/18/2025 13:07:36 microalbu min/creat inine, mass ratio, urine 2023 025 GILBERTO [facility], [address], [place], [address], 05/18/2025 13:07:32 microalbu min, urine 2023 025 INTERFACE [facility], [address], [place], [address], 05/18/2025 13:07:38 CBC w/ auto diff 2023 025 GILBERTO [facility], [address], [place], [address], 05/18/2025 13:07:38 CMP, serum or plasma 2023 025 GILBERTO [facility], [address], [place], [address], 05/18/2025 13:07:35 TSH + free T4, serum 2023 025 GILBEROT [facility], [address], [place], [address], 05/18/2025 13:07:34 lipid panel, serum 2023 025 GILBERTO [facility], [address], [place], [address], 05/18/2025 13:07:33 vitamin B12, serum 2023 025 GILBERTO [facility], [address], [place], [address], 05/18/2025 13:07:37 CBC w/ auto diff 2023 024 [email or web address] [facility], [address], [place], [address], 09/25/2024 17:10:58 CMP, serum or plasma 2023 024 [email or web address] [facility], [address], [place], [address], 09/25/2024 17:11:03 TSH + free T4, serum 2023 024 [email or web address] [facility], [address], [place], [address], 09/25/2024 17:10:53 vitamin B12, serum 2023 [facility]24 [email or web address] [address], [place], [address], 09/25/2024 17:10:42 lipid panel, serum 2023 024 [email or web address], [address], [place], [address], 09/25/2024 17:10:37 HbA1c (hemoglob in A1c), blood 2023 024 [email or web address], [address], [place], [address], 09/25/2024 17:10:32 PSA, total, serum or plasma 2023 024 [email or web address], [address], [place], [address], 09/25/2024 17:10:46 noninvasi ve colorecta l cancer DNA + occult blood screening , QL, stool 2023 024 [place] [facility], [address], [address], [place], [address], 07/08/2024 08:45:11 Referral None recorded. Procedures None recorded. Surgeries None recorded. Imaging None recorded. Medication Orders cephalexi n 500 mg capsule 2024 025 [place] [id number], [address] [place], [address], 05/28/2025 15:39:20 Patient TargetsNo targets recorded. Patient Instructions Encounter Date Encounter Id Patient Instructions Last Modified By Organization Details Last Modified Time 10/11/2024 [id number] A healthy lifestyle: care instructions Not available 10/11/2024 11:33:36 05/28/2025 [id number] A healthy lifestyle: care instructions Not available 05/28/2025 15:19:18 Reason for Referral None Reported. Results Created Date Observation Date Name Description Value Unit Range Abnormal Flag Note LastModifiedBy Organization Detail LastModifiedTime 07/03/20 24 07/03/2024 COLOG UARD cologuard result reportable NEGATI VE negati ve normal NEGAT ZANDRA TEST RESUL T. A negat zandra Colog uard resul t indic ates a low likel ihood that a color ectal cance r (CRC) or advan vane adeno ma (luna [place] us polyp s with more advan vane pre-m align ant featu res) is prese nt. The [facility] e that a perso n with a negat zandra Colog uard test has a color ectal cance r is less than 1 in 1500 (nega tive predi ctive value >99.9 %) or has an advan vane adeno ma is less than 5.3% (nega tive predi ctive value 94.7% ). These data are based on a prosp ectiv e cross -sect ional study of 10,00 0 indiv idual s at [place] risk for color ectal cance r who were scree amber with both Colog uard and colon oscop y. (Stefanie mcdermott T. et al, N Engl J Med 2014; 370(1 4):12 86-12 97) The chichi l value (refe rence range ) for this assay is negat zandra. COLOG UARD RE-SC REENI NG RECOM MENDA TION: Perio dic color ectal cance r scree james is an impor tant part of preve ntive healt hcare for asymp tomat ic indiv idual s at [place] risk for color ectal cance r. Follo wing a negat zandra Colog uard resul t, the Ameri can Cance r Socie ty and U.S. Multi -Soci ety Task Force scree james guide lines recom mend a Colog uard re-sc reeni ng inter deya of 3 years . Refer ences : Ameri can Cance r Socie ty Guide line for Color ectal Cance r Scree james: https ://yarely w.can cer.o rg/ca ncer/ colon -rect al-ca ncer/ detec tion- diagn osis- stagi ng/ac s-rec ommen datio ns.ht ml.; David DK, Arminda cornejo CR, Janelle kim JK, Color ectal Cance r Scree james: Recom menda tions for Physi cians and Patie nts from the U.S. Multi -Soci ety Task Force on Color ectal Cance r Scree james , Amina james rolog y 2017; 112:1 016-1 030. TEST DESCR IPTIO N: [place] site algor ithmi c raisa sis of stool DNA-b iovalerie zuleta with hemog lobin immun oassa y. Quant itati ve value s of indiv idual bioma rkers are not repor table and are not assoc iated with indiv idual bioma rker resul t refer ence range s. Colog uard is inten ded for color ectal cance r scree james of adult s of eithe r sex, 45 years or older , who are at [facility] for color ectal cance r (CRC) . Colog uard has been appro zina for use by the U.[place]. FDA. The perfo rmanc e of Colog uard was estab lishe d in a cross secti onal study of [facility] adult s aged 50-84 . Colog uard perfo rmanc e in patie nts ages 45 to 49 years was estim ated by sub-g roup raisa sis of near- age group s. Colon oscop ies perfo rmed for a posit zandra resul t may find as the most clini brandt signi emir recinos n: color ectal cance r [4.0% ], advan vane adeno ma (incl uding sessi le gricel dusty polyp s great er than or equal to 1cm diame ter) [20%] or non- advan vane adeno ma [31%] ; or no color ectal neopl millicent [45%] . These estim ates are deriv ed from a prosp ectiv e cross -sect ional scree james study of 10,00 0 indiv idual s at [facility] risk for color ectal cance r who were scree amber with both Colog uard and colon oscop y. (Impe riale T. et al, N Engl J Med 2014; 370(1 4):12 86-12 97.) Colog uard may produ ce a false negat zandra or false posit zandra resul t (no color ectal cance r or preca ncero us polyp prese nt at colon oscop y follo w up). A negat zandra Colog uard test resul t does not guara ntee the absen ce of CRC or advan vane adeno ma (pre- cance r). The curre nt Colog uard scree james inter deya is every 3 years . (Amer ican Cance r Socie ty and U.S. Multi -Soci ety Task Force ). Colog uard perfo rmanc e data in a 10,00 0 patie nt pivot al study using colon oscop y as the refer ence metho d can be acces sed at the follo wing locat ion: www.e xactl abs.c om/re sulolivia . Addit ional descr iptio n of the Colog uard test proce ss, warni ngs and preca ution s can be found at www.c ologu addie.c om. Not Available [facility] [address], [place], [address], 07/08/2024 08:45:11 09/27/20 24 09/28/2024 TSH+F REE T4 TSH 1.520 uIU/m L 0.450- 4.500 Not Available [facility] ([facility]) [address] [facility], [place], [address], 09/28/2024 12:28:40 09/27/20 24 09/28/2024 TSH+F REE T4 T4,free(dire ct) 0.96 NG/dL 0.82-1 .77 Not Available [facility] ([facility]) [address] [facility], [place], [address], 09/28/2024 12:28:40 09/27/20 24 09/28/2024 LIPID PANEL cholesterol, total 157 mg/dL 100-19 9 Not Available [facility] ([facility]) [address] [facility], [place], [address], 09/28/2024 12:28:40 09/27/20 24 09/28/2024 LIPID PANEL triglyceride s 92 mg/dL 0-149 Not Available [facility] ([facility]) [address] [place], [address], 09/28/2024 12:28:40 09/27/20 24 09/28/2024 LIPID PANEL HDL cholesterol 58 mg/dL >39 Not Available [facility] ([facility]) [address] [facility] [place], [address], 09/28/2024 12:28:40 09/27/20 24 09/28/2024 LIPID PANEL VLDL cholesterol kimberly 17 mg/dL 5-40 Not Available [facility] ([facility]) [address] [place], [address], 09/28/2024 12:28:40 09/27/20 24 09/28/2024 LIPID PANEL LDL chol calc ([facility]) 82 mg/dL 0-99 Not Available [facility] ([facility]) [address] [facility], [place], [address], 09/28/2024 12:28:40 09/27/20 24 09/28/2024 COMP. METAB OLIC PANEL (14) glucose 124 mg/dL 70-99 above high normal Not Available [facility] ([facility]) [address] [place], [address], 09/28/2024 12:28:41 09/27/20 24 09/28/2024 COMP. METAB OLIC PANEL (14) BUN 13 mg/dL 8-27 Not Available [facility] ([facility]) [address] [place], [address], 09/28/2024 12:28:41 09/27/20 24 09/28/2024 COMP. METAB OLIC PANEL (14) creatinine 0.79 mg/dL 0.76-1 .27 Not Available [facility] ([facility]) [address] [facility], [place], [address], 09/28/2024 12:28:41 09/27/20 24 09/28/2024 COMP. METAB OLIC PANEL (14) eGFR 102 mL/mi n/1.7 3 >59 Not Available [facility] ([facility]) [address] [facility] [place], [address], 09/28/2024 12:28:41 09/27/20 24 09/28/2024 COMP. METAB OLIC PANEL (14) BUN/creatini ne ratio 16 10-24 Not Available [facility] ([facility]) [address] [place], [address], 09/28/2024 12:28:41 09/27/20 24 09/28/2024 COMP. METAB OLIC PANEL (14) sodium 140 mmol/ L 134-14 4 Not Available [facility] ([facility]) [address] [facility] [place], [address], 09/28/2024 12:28:41 09/27/20 24 09/28/2024 COMP. METAB OLIC PANEL (14) potassium 4.1 mmol/ L 3.5-5. 2 Not Available [facility] ([facility]) [address] [place], [address], 09/28/2024 12:28:41 09/27/20 24 09/28/2024 COMP. METAB OLIC PANEL (14) chloride 100 mmol/ L 96-106 Not Available [facility] ([facility]) [address] [place], [address], 09/28/2024 12:28:41 09/27/20 24 09/28/2024 COMP. METAB OLIC PANEL (14) carbon dioxide, total 25 mmol/ L 20-29 Not Available [facility] ([facility]) [address] [place], [address], 09/28/2024 12:28:41 09/27/20 24 09/28/2024 COMP. METAB OLIC PANEL (14) calcium 9.1 mg/dL 8.6-10 .2 Not Available [facility] ([facility]) [address] [facility], [place], [address], 09/28/2024 12:28:41 09/27/20 24 09/28/2024 COMP. METAB OLIC PANEL (14) protein, total 7.1 g/dL 6.0-8. 5 Not Available [facility] ([facility]) [address] [facility] [place], [address], 09/28/2024 12:28:41 09/27/20 24 09/28/2024 COMP. METAB OLIC PANEL (14) albumin 4.5 g/dL 3.8-4. 9 Not Available [facility] ([facility]) [address] [facility], [place], [address], 09/28/2024 12:28:41 09/27/20 24 09/28/2024 COMP. METAB OLIC PANEL (14) globulin, total 2.6 g/dL 1.5-4. 5 Not Available [facility] ([facility]) [address] [facility] [place], [address], 09/28/2024 12:28:41 09/27/20 24 09/28/2024 COMP. METAB OLIC PANEL (14) bilirubin, total 0.5 mg/dL 0.0-1. 2 Not Available [facility] ([facility]) [address] [facility] [place], [address], 09/28/2024 12:28:41 09/27/20 24 09/28/2024 COMP. METAB OLIC PANEL (14) alkaline phosphatase 96 IU/L 44-121 Not Available [facility] ([facility]) [address] [facility] [place], [address], 09/28/2024 12:28:41 09/27/20 24 09/28/2024 COMP. METAB OLIC PANEL (14) AST (SGOT) 22 IU/L 0-40 Not Available [facility] ([facility]) [address] [facility], [place], [address], 09/28/2024 12:28:41 09/27/20 24 09/28/2024 COMP. METAB OLIC PANEL (14) ALT (SGPT) 32 IU/L 0-44 Not Available [facility] ([facility]) [address] [facility], [place], [address], 09/28/2024 12:28:41 09/27/20 24 09/28/2024 HEMOG LOBIN A1C hemoglobin A1C 6.4 % 4.8-5. 6 above high normal Predi abete s: 5.7 - 6.4 Diabe bunny: >6.4 Glyce franchesca contr ol for adult s with diabe bunny: <7.0 Not Available [facility] ([facility]) [address] [facility], [place], [address], 09/28/2024 12:28:41 09/27/20 24 09/28/2024 VITAM IN B12 vitamin B12 817 pg/mL 232-12 45 Not Available [facility] ([facility]) [address] [facility], [place], [address], 09/28/2024 12:28:42 09/27/20 24 09/28/2024 CBC WITH DIFFE RENTI AL/PL ATELE T WBC 9.2 x10e3 /uL 3.4-10 .8 Not Available [facility] ([facility]) [address] [facility], [place], [address], 09/28/2024 12:28:42 09/27/20 24 09/28/2024 CBC WITH DIFFE RENTI AL/PL ATELE T RBC 4.58 x10e6 /uL 4.14-5 .80 Not Available [facility] ([facility]) [address] [facility], [place], [address], 09/28/2024 12:28:42 09/27/20 24 09/28/2024 CBC WITH DIFFE RENTI AL/PL ATELE T hemoglobin 14.7 g/dL 13.0-1 7.7 Not Available [facility] ([facility]) [address] [facility], [place], [address], 09/28/2024 12:28:42 09/27/20 24 09/28/2024 CBC WITH DIFFE RENTI AL/PL ATELE T hematocrit 44.2 % 37.5-5 1.0 Not Available [facility] ([facility]) [address] [facility], [place], [address], 09/28/2024 12:28:42 09/27/20 24 09/28/2024 CBC WITH DIFFE RENTI AL/PL ATELE T MCV 97 fL 79-97 Not Available [facility] ([facility]) [address] [facility], [place], [address], 09/28/2024 12:28:42 09/27/20 24 09/28/2024 CBC WITH DIFFE RENTI AL/PL ATELE T MCH 32.1 pg 26.6-3 3.0 Not Available [facility] ([facility]) [address] [facility], [place], [address], 09/28/2024 12:28:42 09/27/20 24 09/28/2024 CBC WITH DIFFE RENTI AL/PL ATELE T MCHC 33.3 g/dL 31.5-3 5.7 Not Available [facility] ([facility]) [address] [place], [address], 09/28/2024 12:28:42 09/27/20 24 09/28/2024 CBC WITH DIFFE RENTI AL/PL ATELE T RDW 13.1 % 11.6-1 5.4 Not Available [facility] ([facility]) [address] [facility], [place], [address], 09/28/2024 12:28:42 09/27/20 24 09/28/2024 CBC WITH DIFFE RENTI AL/PL ATELE T platelets 216 x10e3 /uL 150-45 0 Not Available [facility] ([facility]) [address] [facility], [place], [address], 09/28/2024 12:28:42 09/27/20 24 09/28/2024 CBC WITH DIFFE RENTI AL/PL ATELE T neutrophils 74 % notest ab. Not Available [facility] ([facility]) [address] [facility], [place], [address], 09/28/2024 12:28:42 09/27/20 24 09/28/2024 CBC WITH DIFFE RENTI AL/PL ATELE T lymphs 11 % notest ab. Not Available [facility] ([facility]) [address] [facility], [place], [address], 09/28/2024 12:28:42 09/27/20 24 09/28/2024 CBC WITH DIFFE RENTI AL/PL ATELE T monocytes 12 % notest ab. Not Available [facility] ([facility]) [address] [facility], [place], [address], 09/28/2024 12:28:42 09/27/20 24 09/28/2024 CBC WITH DIFFE RENTI AL/PL ATELE T eos 2 % notest ab. Not Available [facility] ([facility]) [address] [facility], [place], [address], 09/28/2024 12:28:42 09/27/20 24 09/28/2024 CBC WITH DIFFE RENTI AL/PL ATELE T basos 1 % notest ab. Not Available [facility] ([facility]) [address] [facility], [place], [address], 09/28/2024 12:28:42 11/07/20 24 09/28/2024 CBC WITH DIFFE RENTI AL/PL ATELE T neutrophils (absolute) 6.8 x10e3 /uL 1.4-7. 0 Not Available [facility] ([facility]) [address] [facility], [place], [address], 09/28/2024 12:28:42 09/27/20 24 09/28/2024 CBC WITH DIFFE RENTI AL/PL ATELE T lymphs (absolute) 1.0 x10e3 /uL 0.7-3. 1 Not Available [facility] ([facility]) [address] [facility], [place], [address], 09/28/2024 12:28:42 09/27/20 24 09/28/2024 CBC WITH DIFFE RENTI AL/PL ATELE T monocytes(ab solute) 1.1 x10e3 /uL 0.1-0. 9 above high normal Not Available [facility] ([facility]) [address] [facility], [place], [address], 09/28/2024 12:28:42 09/27/20 24 09/28/2024 CBC WITH DIFFE RENTI AL/PL ATELE T eos (absolute) 0.2 x10e3 /uL 0.0-0. 4 Not Available [facility] ([facility]) [address] [facility], [place], [address], 09/28/2024 12:28:42 09/27/20 24 09/28/2024 CBC WITH DIFFE RENTI AL/PL ATELE T baso (absolute) 0.1 x10e3 /uL 0.0-0. 2 Not Available [facility] ([facility]) [address] [place], [address], 09/28/2024 12:28:42 09/27/20 24 09/28/2024 CBC WITH DIFFE RENTI AL/PL ATELE T immature granulocytes 0 % notest ab. Not Available [facility] ([facility]) [address] [facility], [place], [address], 09/28/2024 12:28:42 09/27/20 24 09/28/2024 CBC WITH DIFFE RENTI AL/PL ATELE T immature grans (abs) 0.0 x10e3 /uL 0.0-0. 1 Not Available [facility] ([facility]) [address] [facility], [place], [address], 09/28/2024 12:28:42 09/27/20 24 09/28/2024 PROST ATE-S PECIF IC AG prostate specific Ag 0.6 NG/mL 0.0-4. 0 Lacey ECLIA metho dolog y. Accor ding to the Ameri can Urolo gical Assoc iatio n, Serum PSA shoul d decre ase and remai n at undet ectab le level s after radic al prost atect shimon. The AUA defin es bioch emica l recur rence as an initi al PSA value 0.2 ng/mL or great er follo wed by a subse quent confi rmato ry PSA value 0.2 ng/mL or great er. Value s obtai amber with diffe rent assay metho ds or kits canno t be used inter rivera eably . Resul ts canno t be inter prete d as absol lummi evide nce of the prese nce or absen ce of isaac borja se. Not Available [facility] ([facility]) [address] [facility], [place], [address], 09/28/2024 12:28:42 10/02/20 24 10/02/2024 SARS- CoV+S ARS-C oV-2 (COVI D-19) Ag [Pres ence] in Respi rator y syste m speci men by Rapid immun oassa y influenza A Ag, POC Negati ve text: negati ve Not Available Not Available 06/10/2025 17:46:50 10/02/20 24 10/02/2024 SARS- CoV+S ARS-C oV-2 (COVI D-19) Ag [Pres ence] in Respi rator y syste m speci men by Rapid immun oassa y influenza B Ag, POC Negati ve text: negati ve Not Available Not Available 06/10/2025 17:46:50 10/02/20 24 10/02/2024 SARS- CoV+S ARS-C oV-2 (COVI D-19) Ag [Pres ence] in Respi rator y syste m speci men by Rapid immun oassa y covid-19 Ag POC Presum ptive Negati ve text: presum ptive negati ve, invali d Not Available Not Available 06/10/2025 17:46:50 10/02/20 24 10/02/2024 SARS- CoV+S ARS-C oV-2 (COVI D-19) Ag [Pres ence] in Respi rator y syste m speci men by Rapid immun oassa y interpretati on and review of laboratory results Normal Not Available Not Available 05/22 17:46:50 05/17/20 25 05/18/2025 ALBUM IN/CR EAT RATIO , RANDO M UR creatinine, urine 45.0 mg/dL notest ab. Not Available [facility] ([facility]) [address] [place], [address], 05/18/2025 13:07:31 05/17/20 25 05/18/2025 ALBUM IN/CR EAT RATIO , RANDO M UR albumin, urine <3.0 ug/mL notest ab. Not Available [facility] ([facility]) [address] [place], [address], 05/18/2025 13:07:31 05/17/20 25 05/18/2025 ALBUM IN/CR EAT RATIO , RANDO M UR alb/creat ratio <7 Chichi l: 0 - 29 Moder ately incre ased: 30 - 300 Sever tai incre ased: >300 Not Available [facility] ([facility]) [address] [place], [address], 05/18/2025 13:07:31 05/17/20 25 05/18/2025 LIPID PANEL W/ CHOL/ HDL RATIO cholesterol, total 176 mg/dL 100-19 9 Not Available [facility] ([facility]) [address] [place], [address], 05/18/2025 13:07:33 05/17/20 25 05/18/2025 LIPID PANEL W/ CHOL/ HDL RATIO triglyceride s 78 mg/dL 0-149 Not Available [facility] ([facility]) [address] [place], [address], 05/18/2025 13:07:33 05/17/20 25 05/18/2025 LIPID PANEL W/ CHOL/ HDL RATIO HDL cholesterol 56 mg/dL >39 Not Available [facility] ([facility]) [address] [place], [address], 05/18/2025 13:07:33 05/17/20 25 05/18/2025 LIPID PANEL W/ CHOL/ HDL RATIO VLDL cholesterol kimberly 15 mg/dL 5-40 Not Available [facility] ([facility]) [address] [place], [address], 05/18/2025 13:07:33 05/17/20 25 05/18/2025 LIPID PANEL W/ CHOL/ HDL RATIO LDL chol calc ([facility]) 105 mg/dL 0-99 above high normal Not Available [facility] ([facility]) [address] [place], [address], 05/18/2025 13:07:33 05/17/20 25 05/18/2025 LIPID PANEL W/ CHOL/ HDL RATIO T. chol/HDL ratio 3.1 ratio 0.0-5. 0 T. Chol/ HDL Ratio Men Women 1/2 Avg.R isk 3.4 3.3 Avg.R isk 5.0 4.4 2X Avg.R isk 9.6 7.1 3X Avg.R isk 23.4 11.0 Not Available [facility] ([facility]) [address] [place], [address], 05/18/2025 13:07:33 05/17/20 25 05/18/2025 TSH+F REE T4 TSH 1.510 uIU/m L 0.450- 4.500 Not Available [facility] ([facility]) [address] [facility] [place], [address], 05/18/2025 13:07:34 05/17/20 25 05/18/2025 TSH+F REE T4 T4,free(dire ct) 1.03 NG/dL 0.82-1 .77 Not Available [facility] ([facility]) [address] [facility] [place], [address], 05/18/2025 13:07:34 05/17/20 25 05/18/2025 COMP. METAB OLIC PANEL (14) glucose 123 mg/dL 70-99 above high normal Not Available [facility] ([facility]) [address] [place], [address], 05/18/2025 13:07:35 05/17/20 25 05/18/2025 COMP. METAB OLIC PANEL (14) BUN 17 mg/dL 8-27 Not Available [facility] ([facility]) [address] [place], [address], 05/18/2025 13:07:35 05/17/20 25 05/18/2025 COMP. METAB OLIC PANEL (14) creatinine 0.83 mg/dL 0.76-1 .27 Not Available [facility] ([facility]) [address] [place], [address], 05/18/2025 13:07:35 05/17/20 25 05/18/2025 COMP. METAB OLIC PANEL (14) eGFR 100 mL/mi n/1.7 3 >59 Not Available [facility] ([facility]) [address] [place], [address], 05/18/2025 13:07:35 05/17/20 25 05/18/2025 COMP. METAB OLIC PANEL (14) BUN/creatini ne ratio 20 10-24 Not Available [facility] ([facility]) [address] [facility] [place], [address], 05/18/2025 13:07:35 05/17/20 25 05/18/2025 COMP. METAB OLIC PANEL (14) sodium 140 mmol/ L 134-14 4 Not Available [facility] ([facility]) [address] [facility] [place], [address], 05/18/2025 13:07:35 05/17/20 25 05/18/2025 COMP. METAB OLIC PANEL (14) potassium 4.3 mmol/ L 3.5-5. 2 Not Available [facility] ([facility]) [address] [facility], [place], [address], 05/18/2025 13:07:35 05/17/20 25 05/18/2025 COMP. METAB OLIC PANEL (14) chloride 99 mmol/ L 96-106 Not Available [facility] ([facility]) [address] [facility] [place], [address], 05/18/2025 13:07:35 05/17/20 25 05/18/2025 COMP. METAB OLIC PANEL (14) carbon dioxide, total 22 mmol/ L 20-29 Not Available [facility] ([facility]) [address] [place], [address], 05/18/2025 13:07:35 05/17/20 25 05/18/2025 COMP. METAB OLIC PANEL (14) calcium 9.5 mg/dL 8.6-10 .2 Not Available [facility] ([facility]) [address] [place], [address], 05/18/2025 13:07:35 05/17/20 25 05/18/2025 COMP. METAB OLIC PANEL (14) protein, total 7.3 g/dL 6.0-8. 5 Not Available [facility] ([facility]) [address] [facility] [place], [address], 05/18/2025 13:07:35 05/17/20 25 05/18/2025 COMP. METAB OLIC PANEL (14) albumin 4.5 g/dL 3.9-4. 9 Not Available [facility] ([facility]) [address] [facility] [place], [address], 05/18/2025 13:07:35 05/17/20 25 05/18/2025 COMP. METAB OLIC PANEL (14) globulin, total 2.8 g/dL 1.5-4. 5 Not Available [facility] ([facility]) [address] [facility] [place], [address], 05/18/2025 13:07:35 05/17/20 25 05/18/2025 COMP. METAB OLIC PANEL (14) bilirubin, total 0.4 mg/dL 0.0-1. 2 Not Available [facility] ([facility]) [address] [facility] [place], [address], 05/18/2025 13:07:35 05/17/20 25 05/18/2025 COMP. METAB OLIC PANEL (14) alkaline phosphatase 97 IU/L 44-121 Not Available [facility] ([facility]) [address] [facility] [place], [address], 05/18/2025 13:07:35 05/17/20 25 05/18/2025 COMP. METAB OLIC PANEL (14) AST (SGOT) 23 IU/L 0-40 Not Available [facility] ([facility]) [address] [place], [address], 05/18/2025 13:07:35 05/17/20 25 05/18/2025 COMP. METAB OLIC PANEL (14) ALT (SGPT) 33 IU/L 0-44 Not Available [facility] ([facility]) [address] [place], [address], 05/18/2025 13:07:35 05/17/20 25 05/18/2025 HEMOG LOBIN A1C hemoglobin A1C 6.9 % 4.8-5. 6 above high normal Predi abete s: 5.7 - 6.4 Diabe bunny: >6.4 Glyce franchesca contr ol for adult s with diabe bunny: <7.0 Not Available [facility] ([facility]) [address] [facility], [place], [address], 05/18/2025 13:07:36 05/17/20 25 05/18/2025 VITAM IN B12 vitamin B12 816 pg/mL 232-12 45 Not Available [facility] ([facility]) [address] [facility], [place], [address], 05/18/2025 13:07:37 05/17/20 25 05/18/2025 CBC WITH DIFFE RENTI AL/PL ATELE T WBC 6.8 x10e3 /uL 3.4-10 .8 Not Available [facility] ([facility]) [address] [facility], [place], [address], 05/18/2025 13:07:38 05/17/20 25 05/18/2025 CBC WITH DIFFE RENTI AL/PL ATELE T RBC 4.85 x10e6 /uL 4.14-5 .80 Not Available [facility] ([facility]) [address] [facility], [place], [address], 05/18/2025 13:07:38 05/17/20 25 05/18/2025 CBC WITH DIFFE RENTI AL/PL ATELE T hemoglobin 15.3 g/dL 13.0-1 7.7 Not Available [facility] ([facility]) [address] [facility], [place], [address], 05/18/2025 13:07:38 05/17/20 25 05/18/2025 CBC WITH DIFFE RENTI AL/PL ATELE T hematocrit 46.8 % 37.5-5 1.0 Not Available [facility] ([facility]) [address] [facility], [place], [address], 05/18/2025 13:07:38 05/17/20 25 05/18/2025 CBC WITH DIFFE RENTI AL/PL ATELE T MCV 97 fL 79-97 Not Available [facility] ([facility]) [address] [facility], [place], [address], 05/18/2025 13:07:38 05/17/20 25 05/18/2025 CBC WITH DIFFE RENTI AL/PL ATELE T MCH 31.5 pg 26.6-3 3.0 Not Available [facility] ([facility]) [address] [facility], [place], [address], 05/18/2025 13:07:38 05/17/20 25 05/18/2025 CBC WITH DIFFE RENTI AL/PL ATELE T MCHC 32.7 g/dL 31.5-3 5.7 Not Available [facility] ([facility]) [address] [facility], [place], [address], 05/18/2025 13:07:38 05/17/20 25 05/18/2025 CBC WITH DIFFE RENTI AL/PL ATELE T RDW 13.4 % 11.6-1 5.4 Not Available [facility] ([facility]) [address] [facility], [place], [address], 05/18/2025 13:07:38 05/17/20 25 05/18/2025 CBC WITH DIFFE RENTI AL/PL ATELE T platelets 263 x10e3 /uL 150-45 0 Not Available [facility] ([facility]) [address] [facility], [place], [address], 05/18/2025 13:07:38 05/17/20 25 05/18/2025 CBC WITH DIFFE RENTI AL/PL ATELE T neutrophils 65 % notest ab. Not Available [facility] ([facility]) [address] [facility], [place], [address], 05/18/2025 13:07:38 05/17/20 25 05/18/2025 CBC WITH DIFFE RENTI AL/PL ATELE T lymphs 22 % notest ab. Not Available [facility] ([facility]) [address] [facility], [place], [address], 05/18/2025 13:07:38 05/17/20 25 05/18/2025 CBC WITH DIFFE RENTI AL/PL ATELE T monocytes 8 % notest ab. Not Available [facility] ([facility]) [address] [facility], [place], [address], 05/18/2025 13:07:38 05/17/20 25 05/18/2025 CBC WITH DIFFE RENTI AL/PL ATELE T eos 3 % notest ab. Not Available [facility] ([facility]) [address] [facility], [place], [address], 05/18/2025 13:07:38 05/17/20 25 05/18/2025 CBC WITH DIFFE RENTI AL/PL ATELE T basos 1 % notest ab. Not Available [facility] ([facility]) [address] [facility], [place], [address], 05/18/2025 13:07:38 05/17/20 25 05/18/2025 CBC WITH DIFFE RENTI AL/PL ATELE T neutrophils (absolute) 4.4 x10e3 /uL 1.4-7. 0 Not Available [facility] ([facility]) [address] [place], [address], 05/18/2025 13:07:38 05/17/20 25 05/18/2025 CBC WITH DIFFE RENTI AL/PL ATELE T lymphs (absolute) 1.5 x10e3 /uL 0.7-3. 1 Not Available [facility] ([facility]) [address] [facility], [place], [address], 05/18/2025 13:07:38 05/17/20 25 05/18/2025 CBC WITH DIFFE RENTI AL/PL ATELE T monocytes(ab solute) 0.6 x10e3 /uL 0.1-0. 9 Not Available [facility] ([facility]) [address] [facility], [place], [address], 05/18/2025 13:07:38 05/17/20 25 05/18/2025 CBC WITH DIFFE RENTI AL/PL ATELE T eos (absolute) 0.2 x10e3 /uL 0.0-0. 4 Not Available [facility] ([facility]) [address] [facility], [place], [address], 05/18/2025 13:07:38 05/17/20 25 05/18/2025 CBC WITH DIFFE RENTI AL/PL ATELE T baso (absolute) 0.1 x10e3 /uL 0.0-0. 2 Not Available [facility] ([facility]) [address] [facility], [place], [address], 05/18/2025 13:07:38 05/17/20 25 05/18/2025 CBC WITH DIFFE RENTI AL/PL ATELE T immature granulocytes 1 % notest ab. Not Available [facility] ([facility]) [address] [facility], [place], [address], 05/18/2025 13:07:38 05/17/20 25 05/18/2025 CBC WITH DIFFE RENTI AL/PL ATELE T immature grans (abs) 0.1 x10e3 /uL 0.0-0. 1 Not Available [facility] ([facility]) [address] [facility], [place], [address], 05/18/2025 13:07:38 Result Notes None recorded. Problems Name Problem SNOMED Code Status Onset Date Resolution Date Notes Provider Name and Address Organization Details Recorded Time Body mass index 25-29 - overweight 465244762 Active 2023 MARY Au Attn: Accountin g,[address] [place], [place], [address] [place] [address] 2, [place] - [facility] 4 00:52:57 Long-term drug therapy Active 2023 MARY Au Attn: Accountin g,[address] [place], [place], [address] [place] [address] 2, [place] [facility] 4 00:53:18 Peripheral neuropathic pain 456480883 Active 2023 MARY Au Attn: Accountin g,[address] [place], [place], [address] [place] [address] 2, [place] [facility] 4 00:53:40 Gastroesoph ageal reflux disease without esophagitis 178408155 Active 2023 MARY Au Attn: Accountin g,[address] [place], [address], [place] [facility] 4 00:53:49 Congestive heart failure 24640733 Active 2023 MARY Au Attn: Accountin g,[address] [place], [place], [address] [place] [address] 2, [place] [facility] 4 00:54:19 Benign essential hypertensio n 8077069 Active 2023 MARY Au Attn: Accountin g,[address] [place], [address], [place] [facility] 4 00:54:39 Hyperlipide sonya 74704278 Active 2023 MARY Au Attn: Accountin g,[address] [place], [address] [facility] 4 00:54:41 Well controlled type 2 diabetes mellitus 216886244 Active 2023 MARY Au Attn: Accountin g,[address] [place], [address], [place] [facility] 4 00:54:55 Overweight 644363251 Active 2023 MARY Au Attn: Ramin jaramillo,[address] [facility], [place], [address], [place] [facility] 4 10:30:28 Obesity 875109771 Active 2023 MARY Au Attn: Accountbelinda jaramillo,[address] [facility], [place], [address], [place] [facility] 4 11:33:18 Body mass index 30+ - obesity 129751680 Active 2023 MARY Au Attn: Ramin jaramillo,[address] [facility], [place], [address] [facility] 4 11:33:19 Obstructive sleep apnea syndrome 14299685 Active 2023 MARY Au Attn: Ramin jaramillo,[address] [facility], [place], [address], [place] [facility] 4 11:34:10 Obese class I 6080705884999 07 Active 2024 MARY Au Attn: Ramin jaramillo,[address] [facility], [place], [address], [place] [facility] 5 15:11:56 Problem Notes None recorded. Medical Equipment None Reported. Allergies No known drug allergies Medications Name Sig Start Date Stop Date Status Note LastModified by Organization Details LastModified Time furosemide 40 mg tablet TAKE 1/2 TABLET BY MOUTH DAILY active Not Available Not Available No t Available atorvastati n 20 mg tablet Take 1 tablet every day by oral route for 90 days. active Not Available Not Available No t Available lisinopril 20 mg-hydrochl orothiazide 12.5 mg tablet TAKE 1 TABLET BY MOUTH EVERY DAY 10/11 completed Not Available Not Available Not Available azithromyci n 250 mg tablet TAKE 2 TABLETS BY MOUTH FOR 1 DAY THEN TAKE 1 TABLET BY MOUTH DAILY FOR 4 DAYS 10/11 completed Not Available Not Available Not Available benzonatate 200 mg capsule 10/11 completed Not Available Not Available Not Available metoprolol succinate ER 50 mg tablet,exte nded release 24 hr Take 1 tablet every day by oral route for 90 days. active Not Available Not Available No t Available omeprazole 40 mg capsule,del ayed release TAKE 1 CAPSULE BY MOUTH EVERY DAY 2024 active Not Available Not Available Not Avai lable spironolact one 25 mg tablet TAKE 1 TABLET EVERY MORNING active Not Available Not Available No t Available cephalexin 500 mg capsule TAKE 1 CAPSULE BY MOUTH EVERY 6 HOURS active Not Available Not Available No t Available metoprolol succinate ER 25 mg tablet,exte nded release 24 hr TAKE 1 TABLET BY MOUTH EVERY MORNING 04/10 completed Not Available Not Available Not Available hydrocodone 10 mg-chlorphe niramine 8 mg/5 mL oral susp extend.rel 12hr TAKE 5 ML BY MOUTH AT BEDTIME 04/10 completed Not Available Not Available Not Available albuterol sulfate HFA 90 mcg/actuati on aerosol inhaler INHALE 2 PUFFS BY MOUTH EVERY 6 HOURS NEEDED FOR WHEEZING OR SHORTNESS OF BREATH active Not Available Not Available No t Available metformin ER 500 mg tablet,exte nded release 24 hr TAKE 2 TABLETS BY MOUTH EVERY DAY 2024 active Not Available Not Available Not Avai lable duloxetine 60 mg capsule,del ayed release TAKE 1 CAPSULE DAILY active Not Available Not Available No t Available pregabalin 100 mg capsule TAKE 1 CAPSULE 3 TIMES A DAY active Not Available Not Available No t Available metformin ER 500 mg 24 hr tablet,exte nded release (gastric retention) TAKE 2 TABLETS BY MOUTH EVERY DAY AT DINNER 01/30 completed Not Available Not Available Not Available Jardiance 10 mg tablet TAKE 1 TABLET BY MOUTH EVERY DAY 2024 active Not Available Not Available Not Avai lable Entresto 49 mg-51 mg tablet TAKE 1 TABLET TWICE A DAY active Not Available Not Available No t Available Vitals Date Recorded Body height Respiratory rate Body mass index (BMI) Body weight Oxygen saturation Oxygen saturation in Arterial blood by Pulse oximetry Heart rate Systolic And Diastolic Provider Name and Address Organization Details Last Updated DateTime 4 175.26 cm 20 /min 29.7 kg/m2 74116.0 7 g 97 % 97 % 75 /min 132/88 mm[Hg] Bonita Osborne MA [facility] 4 11:43:33 Date Recorded Systolic And Diastolic Provider Name and Address Organization Details Last Updated DateTime 05/28/2025 130/80 mm[Hg] MARY Au Attn: Accounting,[address] [place], [address], [facility] 05/28/2025 15:38:45 Date Recorded Body height Body mass index (BMI) Body weight Oxygen saturation Oxygen saturation in Arterial blood by Pulse oximetry Heart rate Respiratory rate Systolic And Diastolic Provider Name and Address Organization Details Last Updated DateTime 175.26 cm 30.4 kg/m2 77125.0 3 g 98 % 98 % 87 /min 18 /min 136/80 mm[Hg] Bonita Osborne MA [facility] 15:07:41 Date Recorded Respiratory rate Provider Name a nd Address Organization Details Last Updated DateTime 10/11/2024 18 /min MARY Au Attn: Accounting,[address] [place], [address], [facility] 10/11/2024 11:43:40 Date Recorded Body height Provider Name an d Address Organization Details Last Updated DateTime 10/11/2024 175.26 cm Lory Quinteros on, A [facility] 10/11/2024 10:56:55 Date Recorded Body mass index (BMI) Body weight Heart rate Body temperature Oxygen saturation Oxygen saturation in Arterial blood by Pulse oximetry Systolic And Diastolic Provider Name and Address Organization Details Last Updated DateTime 30.6 kg/m2 18320.6 2 g 66 /min 98.8 [degF] 98 % 98 % 138/86 mm[Hg] Jyotsna Guerrero LPN [facility] 4 11:05:22 Social History Question Answer Notes LastModified by Organizat ion Details LastModified Time Tobacco Smoking Status Never Smoker Bonita Osborne MA null, [facility] 04/10/2024 11:40:15 Do You Have An Advance Directive? No Information not available 04/10/2024 Are You Blind Or Do You Have Difficulty Seeing? No Glasses Information not available 04/10/2024 What Is Your Level Of Caffeine Consumption? Occasional Soda/ Coffee/ Tea Information not available 04/10/2024 In The 14 Days Before Symptom Onset, Have You Had Close Contact With A Laboratory-confir med COVID-19 While That Case Was Ill? No Information not available 04/10/2024 In The 14 Days Before Symptom Onset, Have You Had Close Contact With A Person Who Is Under Investigation For COVID-19 While That Person Was Ill? No Information not available 04/10/2024 Have You Been To An Area Known To Be High Risk For COVID-19? No Information not available 04/10/2024 Are You Deaf Or Do You Have Serious Difficulty Hearing? No Information not available 04/10/2024 What Type Of Diet Are You Following? REGULAR Healthy, [place] [employer] Information not available 04/10/2024 Are There Any Guns Present In Your Home? No Information not available 04/10/2024 What Was The Date Of Your Most Recent Tobacco Screening? 05/28/2025 Information not available 05/28/2025 What Is Your Relationship Status? Information not available 04/10/2024 Do You Use Your Seat Belt Or Car Seat Routinely? Yes Information not available 04/10/2024 Do You Have Smoke And Carbon Monoxide Detectors In Your Home? Yes Information not available 04/10/2024 Do You Use Sunscreen Routinely? No Information not available 04/10/2024 Has Tobacco Cessation Counseling Been Provided? Yes Information not available 04/10/2024 On What Date Was Tobacco Cessation Counseling Provided? 05/28/2025 Information not available 05/28/2025 Sex: Male Functional Status Question Answer Note LastModified by Organizat ion Details LastModified Time Do you use any illicit or recreational drugs? No Information not available 04/10/2024 Do you or have you ever used any other forms of tobacco or nicotine? No Information not available 05/28/2025 What is your level of alcohol consumption? Occasional whiskey Information not available 04/10/2024 Are you able to care for yourself independently? Yes Information not available 04/10/2024 What is your exercise level? Occasional mow Information not available 04/10/2024 Mental Status None recorded. Family History Relationship Description Onset Age of this Age Resolved Age Notes LastModified by Organization Details LastModified Time Father Harmful pattern of use of alcohol [email or web address] Not available 2023 12:28:50 Mother Heart disease [email or web address] Not available 2023 12:28:54 Medical History Condition Response Coronary Artery Disease N Other N Atrial Fibrillation N High Blood Pressure Y Thyroid Problems N Kidney or Bladder Problems N Depression N COPD N Blood Clots N GI Problems N Skin Problems N Anemia N Heart Attack (MS) N Diabetes Y Anxiety Disorder N Muscle, Joint, or Bone Problems N Seizures/Epilepsy N Acid Reflux (GERD) N Cancer N Stroke N Allergies N Asthma N High Cholesterol Y Hepatitis N Liver Disease N Headaches N Osteoporosis N Heart Failure N Immunizations Vaccine Type Date Status Note Provider Nam e and Address Organization Details Recorded Time zoster, unspecified formulation 5 completed PATRICE [place], [place] 05/01/2025 12:56:45 Td (adult), 5 Lf tetanus toxoid, preservative free, adsorbed 5 completed Not Available [facility] 05/28/2025 14:52:35 Tdap 7 completed Not Available [facility] 05/28/2025 14:52:35 Influenza, split virus, trivalent, PF 8 completed Not Available [facility] 05/28/2025 14:52:35 Hep A-Hep B 8 completed Not Available [facility] 05/28/2025 14:52:35 Influenza, split virus, quadrivalent, PF 8 completed Not Available [facility] 05/28/2025 14:52:35 Influenza, MDCK, quadrivalent, preservative 8 completed Not Available [facility] 05/28/2025 14:52:35 Hep A-Hep B 8 completed Not Available [facility] 05/28/2025 14:52:35 Hep A-Hep B 9 completed Not Available [facility] 05/28/2025 14:52:35 COVID-19, mRNA, LNP-S, PF, 100 mcg/0.5mL dose or 50 mcg/0.25mL dose 1 completed Not Available [facility] 05/28/2025 14:52:35 COVID-19, mRNA, LNP-S, PF, 30 mcg/0.3 mL dose 1 completed Not Available [facility] 05/28/2025 14:52:35 COVID-19, mRNA, LNP-S, PF, 30 mcg/0.3 mL dose 1 completed Not Available [facility] 05/28/2025 14:52:35 COVID-19, mRNA, LNP-S, PF, 100 mcg/0.5mL dose or 50 mcg/0.25mL dose 2 completed Not Available [facility] 05/28/2025 14:52:35 Influenza, MDCK, quadrivalent, PF 2 completed Not Available [facility] 05/28/2025 14:52:35 COVID-19, mRNA, LNP-S, bivalent, PF, 30 mcg/0.3 mL dose 2 completed Not Available [facility] 05/28/2025 14:52:35 Influenza, MDCK, quadrivalent, PF 3 completed Not Available [facility] 05/28/2025 14:52:35 COVID-19, mRNA, LNP-S, PF, yana-sucrose, 30 mcg/0.3 mL 3 completed Not Available [facility] 05/28/2025 14:52:35 COVID-19, mRNA, LNP-S, PF, yana-sucrose, 30 mcg/0.3 mL 4 completed Not Available [facility] 05/28/2025 14:52:35 zoster recombinant 5 completed Bonita Osborne [place], [place] [facility] 08/06/2025 15:14:15 Influenza, split virus, trivalent, PF 4 completed MARY Au Attn: Accounting,[address], [place], [address], [facility] 10/17/2024 17:45:11 Past Encounters Encounter ID Performer Location Encounter Start Date Encounter Closed Date Diagnosis/Indication Diagnosis SNOMED-CT Code Diagnosis ICD10 Code Diagnosis IMO Codes Diagnosis Note [id number] Jed Freeman MD [facility] [employer] [address] [place] [address] 04/10/2024 11:20:50 04/10/2024 12:29:55 Well controlled type 2 diabetes mellitus 208491111 E11.9 pt is stable on jardiance 10mg daily and metformin ER 500mg two daily Hyperlipidemia 13612314 E78.5 stable on atorvastat in 20mg daily. due for fasting lipids Benign ess ential hypertension 0990273 I10 stable on spironolac tone, lasix and entresto combinatio ns now. Congestive heart failure 21150865 I50.9 new dx. now on furosemide 20mg total daily and Entresto 49/51mg daily. Long-term drug therapy 313327452 Z79.899 cbc, cmp and tfts due. Gastroesop hageal reflux disease without esophagitis 732470712 K21.9 stable on omeprazole 40mg daily. Peripheral neuropathic pain 379752388 M79.2 pt is stable on lyrica 100mg tid and duloxetine 60mg daily . screening b12 lab due. Screening for malignant neoplasm of prostate 819353081 Z12.5 annual psa due Screening for malignant neoplasm of colon 617502796 Z12.11 pt needs another cologuard sent out. he didn't complete the last one ordered. Body mass index 25-29 - overweight 786641446 Z68.29 bmi 29.7.discu ssed healthy diet, exercise, controllin g carbohydra bunny and added sugars in the diet [id number] Jed Freeman MD [facility] [employer] [address] [place] [address] 10/11/2024 10:41:01 10/11/2024 11:49:52 Well controlled type 2 diabetes mellitus 371851359 E11.9 pt is stable with an A1c of 6.4% on recent labs. On jardiance 10mg daily and metformin ER 500mg two daily. Repeat labs including annual albumin testing is due in March Hyperlipidemia 08674086 E78.5 Lab panel is all in normal range, stable on atorvastat in 20mg daily. Repeat lipids in March Benign ess ential hypertension 6228581 I10 stable on spironolac tone, lasix and entresto combinatio ns now. Patient is doing well on combinatio n therapy Congestive heart failure 21214978 I50.9 Recent diagnosis this year now on furosemide 20mg total daily and Entresto 49/51mg daily. Patient does follow with Cardiology and is currently asymptomat ic and stable Gastroesop hageal reflux disease without esophagitis 550742512 K21.9 stable on omeprazole 40mg daily. Peripheral neuropathic pain 032597149 M79.2 pt is stable on lyrica 100mg tid and duloxetine 60mg daily . B12 will be ordered again for me Long-term drug therapy 688994559 Z79.899 cbc, cmp and tfts due in March Body mass index 30+ - obesity 165662951 Z68.30 bmi 30.6 Obesity 900246243 E66.9 discussed healthy diet, exercise, controllin g carbohydra bunny and added sugars in the diet Obstructiv e sleep apnea syndrome 38696408 G47.33 pt is on cpap machine nightly since it being ordered after hospital stay this year when CHF was diagnosed. We discussed inspire device and the fact that you have to be a particular candidate for and be screened. We talked about the nature of how it is placed and what that entails and at this point he is not interested . Adult [facility] th examination 429961237 Z00.01 wellness exam completed. [id number] Jed Freeman MD [facility] [employer] [place] [address] [place] [address] 10/15/2024 11:20:39 10/15/2024 11:37:13 Administration of influenza vaccine 11098503 Z23 [id number] Jed Freeman MD [facility] [employer] [place] [address] [place] [address] 05/28/2025 14:51:10 05/28/2025 15:46:38 Obese class I 2490687406 07250 E66.811 [id number] discussed healthy diet, exercise, controllin g carbohydra bunny and added sugars in the diet Well contr olled type 2 diabetes mellitus 921144770 E11.9 pt is stable with an A1c of 6.9% on recent labs. On jardiance 10mg daily and metformin ER 500mg two daily. Next labs due in September Hyperlipidemia [id number] E78.5 Lab panel is all in normal range, stable on atorvastat in 20mg daily. Repeat fasting lipid panel in September Benign ess ential hypertension [id number] I10 stable on spironolac tone, lasix and entresto combinatio ns now. Patient is doing well on combinatio n therapy Congestive heart failure [id number] I50.9 Recent diagnosis this year now on furosemide 20mg total daily and Entresto 49/51mg daily. Patient does follow with Cardiology and is currently asymptomat ic and stable Gastroesop hageal reflux disease without esophagitis [id number] K21.9 stable on omeprazole 40mg daily. Peripheral neuropathic pain [id number] M79.2 pt is stable on lyrica 100mg tid and duloxetine 60mg daily . B12 will be ordered again for me Obstructiv e sleep apnea syndrome [id number] G47.33 pt is on cpap machine nightly since it being ordered after hospital stay this year when CHF was diagnosed. We discussed inspire device and the fact that you have to be a particular candidate for and be screened. We talked about the nature of how it is placed and what that entails and at this point he is not interested . Long-term drug therapy [id number] Z79.899 Next labs ordered for September including thyroid Body mass index 30+ - obesity [id number] Z68.30 bmi 30.4 Screening for malignant neoplasm of prostate [id number] Z12.5 135368 annual psa due in September Injury of toe of right foot [id number] 4478003 S99.921A [id number] Patient does have a slight little inflammati on around the right great toenail. We are going to start cephalexin 500 mg every 6 hours for 10 days to treat any early-onse t infection with underlying diabetes present. Health Concerns Section Related Observation LastModified by Organization Detai ls LastModified Time None Recorded Concern Status LastModified by Organization Details LastModified Time None Recorded Advance Directives Directive N: Payers Insurance Date Sequence Insurance Name Policy Number Policy Alcantar Covered Member ID Alcantar Member ID Guarantor Name 06/20/2025 1 [place] [address] [id number] Jed Light Notes Date Note Type Note Provider Name and Address Organization Details Recorded Time 4 text/html HyperlipidemiaReported by Patientstable on statin therapy HypertensionReported by Patientnow on regimen of entresto, lasix, spironolactone. DiabetesReported by Patientstable on jardiance and metformin combinations. CHF F/UReported by Patientstable on entresto and lasix/spironolactone combination. Peripheral NeuropathyReported by Patientpt is taking duloxetine 60mg daily and lyrica 100mg tid for P.N. Reflux/GERDReported by Patientstable on PPI therapy. MARY Au Attn: Accounting[address] [place], [address], [facility] 04/23/2024 00:58:11 4 text/html HyperlipidemiaReported by Patientstable on statin therapy HypertensionReported by Patientnow on regimen of entresto, lasix, spironolactone. Obstructive Sleep Apnea F/UReported by PatientPatient is on CPAP therapy but does struggle somewhat keeping the mask on at night due to position changes while sleeping. He is wondering if he may be a candidate for the inspire device CHF F/UReported by Patientstable on entresto and lasix/spironolactone combination. DiabetesReported by Patientstable on jardiance and metformin combinations. Peripheral NeuropathyReported by Patientpt is taking duloxetine 60mg daily and lyrica 100mg tid for P.N. Reflux/GERDReported by Patientstable on PPI therapy. MARY Au Attn: Accounting[address] [place], [address], [facility] 10/21/2024 19:18:10 5 text/html HyperlipidemiaReported by Patientstable on statin therapy HypertensionReported by Patientnow on regimen of entresto, lasix, spironolactone. DiabetesReported by Patientstable on jardiance and metformin combinations. CHF F/UReported by Patientstable on entresto and lasix/spironolactone combination. Obstructive Sleep Apnea F/UReported by PatientPatient is on CPAP therapy but does struggle somewhat keeping the mask on at night due to position changes while sleeping. He is wondering if he may be a candidate for the inspire device Peripheral NeuropathyReported by Patientpt is taking duloxetine 60mg daily and lyrica 100mg tid for P.N. Reflux/GERDReported by Patientstable on PPI therapy. MARY Au Attn: Accounting,[address] [facility], [place], [address], [facility] 06/20/2025 12:09:35
--- OUTSIDE RECORDS SUMMARY | 2025-09-20 12:34 | XMS_ITS | Clinical Summary ---
Author Organization [facility] Address [address] [place] [address] Care Team Providers Care Printed Circuit Board Layout Designer Name Role Phone Amee Aragon MD Primary Care Provider [phone] Source Comments [facility],non-owned Affiliates and Associated Physician Practices is amultiple site organization consisting of ambulatory clinics and hospital sitesin [place], [place], [place] and [place]. This disclosure is being madepursuant to the Care Everywhere program and may not contain all information available regarding this patient. Last updated 18.[facility] Allergies Active Allergy Reactions Criticality Noted Date Comments Penicillins Unknown 08/29/2020 Medications * Be aware that medications may not be up to date on this document. Alwaysverify current medications with the patient. atorvastatin (LIPITOR) 20 MG tablet Take 20 mg by mouth every evening 06/14/2020 Active quinapril (ACCUPRIL) 20 MG tablet Take 20 mg by mouth once daily 06/14/2020 Active Active Problems No known active problems Family History Medical History Relation Name Comments Dementia Mother Hypertension Mother Relation Name Status Comments Mother Social History Tobacco Use Types Packs/Day Years Used Date Smoking Tobacco: Never Smokeless Tobacco: Never Alcohol Use Standard Drinks/Week Comments Yes 0 (1 standard drink = 0.6 oz pur e alcohol) Sex and Gender Information Value Date Recorded Sex Assigned at Not on file Legal Sex Male 2:27 PM CDT Gender Identity Not on file Sexual Orientation Not on file Last Filed Vital Signs Vital Sign Reading Time Taken Comments Blood Pressure 122/73 08/29/2020 9:10 AM CDT Pulse 78 08/29/2020 9:10 AM CDT Temperature - - Respiratory Rate - - Oxygen Saturation - - Inhaled Oxygen Concentration - - Weight - - Height 190.5 cm (6' 3) 08/29/2020 9:10 AM CDT Body Mass Index - - Plan of Treatment Health Maintenance Due Date Last Done Comments COLOGUARD (AGES 45-75) - COL ON CA SCREENING 1964 COLON MONITORING 1964 COLONOSCOPY - COLON CA SCREENING 1964 CT COLONOGRAPHY - COLON CA SCREENING 1964 Colorectal Cancer Screening 1964 FIT - COLON CA SCREENING 1964 FLEX SIG - COLON CA SCREENING 1964 HIV SCREENING 1979 HEPATITIS C SCREENING 05/12/1982 DTAP/TDAP/TD VACCINES (1 - Tdap) 1983 PNEUMOCOCCAL VACCINE 50+ (1 of 1 - PCV) 2014 ZOSTER VACCINE (1 of 2) 2014 DEPRESSION SCREENING 11/21/2024 COVID-19 VACCINE (1 - 2023-2 5 season) 2025 INFLUENZA VACCINE (#1) 2025 Respiratory Syncytial Virus (RSV) Vaccine Pt: or over 60 yrs (1 - 1-dose 75+ series) 2039 HEPATITIS B VACCINE Aged Out No longe r eligible based on patient's age to complete this topic HIB VACCINE Aged Out No longer eligi ble based on patient's age to complete this topic HPV VACCINE Aged Out No longer eligi ble based on patient's age to complete this topic MENINGOCOCCAL (Group B) VACC INE SHARED DECISION-MAKING Aged Out No longer eligibl e based on patient's age to complete this topic MENINGOCOCCAL GROUPS A/C/Y/W VACCINE Aged Out No longer eligible b ased on patient's age to complete this topic Insurance [employer] Care Teams Printed Circuit Board Layout Designer Relationship Specialty Start Date End Date Amee Aragon MD PCP - General Family Medicine 08/29/20
== END 2025-09-20 12:31 | disposition home or self-care (01) ==
PROVIDERS: PCP Family Medicine; Visit Provider Urology
DX: N20.1 Calculus of ureter (principal)
CPT/HCPCS: 74018

== ENCOUNTER 2025-10-04 11:09 | Outpatient (CLI) | payer OTHER, SELFPAY ==
--- NOTE | ~2025-10-04 | XR_ITS ---
EXAMINATION: XR abdomen/kub 1V DATE: 10/04/2025 11:28 INDICATION: Left-sided ureteral stone TECHNIQUE: A supine view of the abdomen on 2 radiographs was obtained. COMPARISON: Radiographs dated 09/20/2025, 08/18/[address] dated 07/08/2023 FINDINGS: Unchanged pattern of phleboliths and prostatic calcifications in the inferior pelvis. No other calcifications identified in the region of the bilateral kidneys or along the course of the ureters to suggest urolithiasis. Normal bowel gas pattern with moderate amount of scattered colonic stool. Lung bases are clear. Heart size is normal. Severe lower lumbar facet osteoarthritis. IMPRESSION: 1. Unchanged pattern of phleboliths and prostatic calcifications in the pelvis. No evident urolithiasis. Reviewed, dictated and finalized at location A. [facility]
== END 2025-10-04 11:10 | disposition home or self-care (01) ==
PROVIDERS: PCP Family Medicine; Visit Provider Urology
DX: N20.1 Calculus of ureter (principal)
CPT/HCPCS: 74018